=== PATIENT | female | born 1955 | race Two or more races ===

== ENCOUNTER 2019-04-27 23:33 | Inpatient (IN) | payer OTHER, MEDICAID ==
[~2019-04-27] VITALS: Ht 167.6 cm; Wt 98.0 kg
--- NOTE | 2019-04-28 01:08 | NUR ---
PT RESTING IN BED, AAOX4 WITH C/O REDNESS WITH SWELLING TO RT LOWER ABD X 1 WEEK. PT DENIES ANY TRAUMA/INJURY AT THIS TIME. PT DENIES FEVERS/CHILLS, N/V/D/C, RESP ILLNESS OR URINARY PROBLEMS AT THIS TIME. PT NOTED WITH REDNESS TO RT LOWER ABD WITH SWELLING, FIRM/WARM TO TOUCH. AT BEDSIDE.
[2019-04-28 01:31] LABS: BASOPHIL % 0.1 % (0-2); PLATELET COUNT 349 x10^3mcL (130-400)
--- NOTE | 2019-04-28 01:45 | NUR ---
RECEIVED REPORT FROM FREDY RYAN RN, I WILL BE ASSUMIGN FURTHER CARE OF THIS PATIENT.
[2019-04-28 01:51] LABS: UA SPECIFIC GRAVITY <=1.005 (1.005-1.035); microscopic required? YES; urine erythrocyte 1+ (NEGATIVE)
--- NOTE | 2019-04-28 01:55 | NUR ---
PT TAKEN AND RETURNED FROM CT WITHOUT INCIDENT VIA WHEELCHAIR.
--- NOTE | 2019-04-28 02:00 | NUR ---
PT IS AAOX4, NO DISTRESS NOTED, RESP E/U REDNESS NOTED TO RLQ. PT C/O RLQ PAIN AND SWELLING. SKIN IS HOT TO TOUCH. PT LITHUANIAN SPEAKING ONLY. AT THE BEDSIDE. PT ON FULL CM, NSR, VSS WILL CONT TO MONITOR.
[2019-04-28 02:40] LABS: CARBON DIOXIDE 22.7 mmol/L (21-32); CHLORIDE SERUM 100 mmol/L (98-107); GLUCOSE SERUM 212 mg/dL (74-106); POTASSIUM SERUM 3.8 mmol/L (3.5-5.1); SODIUM SERUM 137 mmol/L (136-145)
[2019-04-28 02:41] LABS: ALBUMIN 2.6 g/dL (3.4-5.0); ALT/SGPT 34 U/L (14-59); AST/SGOT 32 U/L (15-37); BILIRUBIN TOTAL 0.96 mg/dL (0.20-1.00); CALCIUM 8.9 mg/dL (8.5-10.1); CREATININE SERUM 0.8 mg/dL (0.6-1.0); GFR1 > 60 mL/min; TOTAL PROTEIN, SERUM 7.3 g/dL (6.4-8.2)
[2019-04-28 02:42] LABS: ALKALINE PHOSPHATASE 134 U/L (46-116)
[2019-04-28 02:57] LABS: C REACTIVE PROTEIN 22.1 mg/dL (<=0.9)
--- NOTE | 2019-04-28 02:58 | NUR ---
IV FLUIDS AND IV ZOSYN INFUSING, NO INFILTRATION OR PAIN NOTED TO SITE, PT IS AAOX4, NO DISTRESS NOTED, RESP E/U, REDNESS NOTED TO LRQ. PT ON MONTIOR, VSS. WILL CONT TO MONITOR. AT THE BEDSIDE.
--- NOTE | 2019-04-28 04:00 | NUR ---
PT IN POSITION OF COMFORT IN HIGH RUIZ'S. GAVE PATIENT A BLANKET FOR COMFORT MEASURES, PLACED SOCKS ONTO PATIENTS FEET. PT IN NO DISTRESS, RESP E/U. PT ON MONITOR, VSS, WILL CONT TO MONITOR. PT RESTING WITH EYES CLOSED, AROUSABLE TO VOICE.
[2019-04-28] MEDS ORDERED: ADVIL200 M1 PO (04:49)
[2019-04-28 05:33] LABS: CHOLESTEROL/HDL RATIO 4.3; MAGNESIUM 2.2 mg/dL (1.8-2.4)
--- NOTE | 2019-04-28 05:37 | NUR ---
REPORT GIVEN TO DEEDEE ZHAO, ON MEDSUR FLOOR WHO WILL ASSUME FURTHER CARE OF THIS PATIENT.
[2019-04-28 06:35] LABS: AMPHETAMINE QUAL UR NEGATIVE (See below)
--- NOTE | 2019-04-28 06:37 | NUR ---
RECEIVED PT FROM ER ADMITTED FOR ABDL WALL CELLULITIS, FACILITATED TO BED ORIENTED TO ROOM SET UP, PT AAO X4 VERBAL AMBULATORY, NO DISTRESS, ABD DISTENDED FIRM AND WARM TO TOUCH @ RT LOWER QUADRANT, WITH REDNESS AND SWELLING, V/S TAKEN, AFEBRILE TEMP 99.1, BP 122/62, MAP (83), HR 97, 02 SAT 97% RA, RR 18, WITH ABDL PAIN 5/10, WILL ENDORSE TO INCOMING SHIFT FOR ADMISSION.
--- NOTE | 2019-04-28 06:58 | NUR ---
IVF NS STARTED @ 100CC/HR IV ACCESS @ [facility] PATENT NON INFIL, MEDICATED WITH NORCO 1 TAB PO FOR C/O ABDL PAIN.
--- NOTE | 2019-04-28 07:19 | NUR ---
ASSUMED CARE OF PATIENT. PATIENT APPEARS LETHARGIC THIS MORNING, RESPONDING APPROPRIATELY TO QUESTIONS. COMPLAINTS OF 5/10 PAIN, NO APPARENT DISTRESS NOTED, MEDICATED BY ACADEMIC COORDINATOR PER EMAR. LLQ APPEARS ERYTHEMATOUS, HARD, AND HOT. ULCERATION NOTED TO AREA ABOVE UMBILICUS. IV TO LAC PATENT AND INFUSING NS AT 100ML/HR. WILL CONTINUE TO MONITOR.
[2019-04-28 07:36] VITALS: BP 122/62
[2019-04-28 08:14] VITALS: BP 116/66
--- NOTE | 2019-04-28 08:28 | NUR ---
DUNCAN TYLENOL PROVIDED FOR TEMP OF 101.
--- NOTE | 2019-04-28 09:36 | NUR ---
S/P TYLENOL, TEMP 100F. PRN MORPHINE PROVIDED FOR 8/10 RLQ PAIN.
--- NOTE | 2019-04-28 09:54 | NUR ---
PAGED FOR MISSING DIET ORDER.
--- NOTE | 2019-04-28 10:22 | NUR ---
DR. POPE PAGED AND RETURN CALL. MADE AWARE THAT PT HAD A TEMP THIS AM 101.8 WITH WBC 14.5 AT MIDNIGHT NO REPEAT LABS THIS AM. BLOOD CX WERE TAKEN LAST NIGHT. PT HAS UA WITH +1 LEUKS. WAS GIVEN ZOSYN AND VANCO IN ED WITH NO ATB ON BOARD AT THIS TIME. RECEIVED ORDER FOR CEFTRIAXONE 1G IVPB DAILY, AND TYLENOL IF NOT GIVEN FOR FEVER. MADE AWARE THAT FEVER HAD BEEN TREATED. NO FURTHER ORDERS WILL CONT TO MONITOR. ATTENDING NURSE MADE AWARE.
--- NOTE | 2019-04-28 12:46 | NUR ---
PATIENT RESTING IN BED WITH COMPLAINTS OF MILD 4/10 ABDOMINAL PAIN. ABLE TO AMBULATE INDEPENDENTLY TO RESTROOM. NO NEW ISSUES.
--- NOTE | 2019-04-28 13:42 | NUR ---
COMPLAINING OF 8/10 RLQ PAIN. PRN MORPHINE PROVIDED.
--- NOTE | 2019-04-28 14:10 | NUR ---
PATIENT STATING PAIN IS STILL AT 8/10. BP CHECK 126/44, PRN TYLENOL PROVIDED.
--- NOTE | 2019-04-28 16:25 | NUR ---
PATIENT IN ROOM WITH COMPLAINTS OF MILD 4/10 PAIN THAT IS TOLERABLE AND ACCEPTABLE. FAMILY ALSO AT BEDSIDE. UPDATED ON PLAN OF CARE. NO NEW ISSUES.
[2019-04-28 16:55] VITALS: BP 139/58
--- NOTE | 2019-04-28 18:38 | NUR ---
COMPLAINING OF 6/10 ABDOMINAL PAIN. PRN MORPHINE PROVIDED.
--- NOTE | 2019-04-28 18:41 | NUR ---
PATIENT MEDICATIED FOR PAIN PER EMAR. NO APPARENT DISTRESS NOTED. WILL ENDORSE CARE TO CISCO ZHAO.
--- NOTE | 2019-04-28 19:30 | NUR ---
REC'D PT FROM DAY NURSE. PT RESTING IN BED. AAOX4, SPEECH CLEAR, FOLLOWS COMMANDS. MED SURG, NO TELE. DENIES CP, DIZZINESS, OR PALPITATIONS. DENIES RESP DISTRESS OR SOB. BREATHING EVEN/UNLABORED ON RA. ABD SOFT/ROUND. RLQ INDURATED, ERYTHEMIC, AND WARM TO TOUCH. SMALL AREA OF OPEN SKIN WITH WHITE WOUND BED IN CLEFT OF ABD WITH MINIMAL DRY SANGUINEOUS DRAINAGE IRON GUARDRAIL INSTALLER. VOIDING FREELY. GEN WEAKNESS. AMBULATORY. IV TO LAC PATENT AND INFUSING, SITE WNL. CALL LIGHT WITHIN REACH, BED AT LOWEST POSITION. WILL CONTINUE TO MONITOR.
[2019-04-28 20:28] VITALS: BP 136/41
--- NOTE | 2019-04-28 20:36 | NUR ---
TEMP 103.0. PT DENIES ANY CHILLS. COOLING MEASURES INITIATED AND TYLENOL GIVEN. WILL MONITOR FOR RELIEF.
--- NOTE | 2019-04-28 22:01 | NUR ---
TEMP STILL ELEVATED S/P TYLENOL ADMINISTRATION. TEMP 102.1. COOLING MEASURES IN PLACE. DRS. CASTRO AND WALDO MADE AWARE. RECOMMENDED IBUPROFEN OR TORADOL. STATED WILL "ORDER SOMETHING."
--- NOTE | 2019-04-29 01:27 | NUR ---
PT RESTING IN BED WITH EYES CLOSED. NO SIGNS OF DISTRESS OR PAIN NOTED. BREATHING EVEN/UNLABORED ON RA. CALL LIGHT WITHIN REACH, BED AT LOWEST POSITION. WILL CONTINUE TO MONITOR.
[2019-04-29 05:09] VITALS: BP 112/58
--- NOTE | 2019-04-29 06:09 | NUR ---
PT AWAKE AND RESTING IN BED. C/O ABD PAIN 01/08. TORADOL GIVEN PER ORDER. TEMP 99.1, COOLING MEASURES IN PLACE. PT KEPT NPO D/T PENDING SURGICAL CONSULT. PT VERBALIZED UNDERSTANDING. NO SIGNIFICANT CHANGES DURING SHIFT. CALL LIGHT WITHIN REACH, BED AT LOWEST POSITION. WILL ENDORSE TO DAY NURSE.
[2019-04-29 06:58] LABS: PLATELET COUNT 363 x10^3mcL (130-400); RED CELL DISTRIBUTION WIDTH 13.8 % (11.5-14.5)
--- NOTE | 2019-04-29 07:10 | NUR ---
RECEIVED REPORT FROM ENRIKE RN AT BEDSIDE, PT IN BED IN NO ACUTE DISTRESS
[2019-04-29 07:17] LABS: CALCIUM 7.3 mg/dL (8.5-10.1); CARBON DIOXIDE 22.5 mmol/L (21-32); CHLORIDE SERUM 103 mmol/L (98-107); CREATININE SERUM 0.9 mg/dL (0.6-1.0); GFR1 > 60 mL/min; GLUCOSE SERUM 122 mg/dL (74-106); MAGNESIUM 1.7 mg/dL (1.8-2.4); POTASSIUM SERUM 3.8 mmol/L (3.5-5.1); SODIUM SERUM 138 mmol/L (136-145)
--- NOTE | 2019-04-29 07:21 | NUR ---
PT RESTING IN BED, AXOX4, DENIED HERNANDEZ/PAIN/PALPITATION, DENIED N/V/D, VERBAL, VIETNAMESE, ABLE TO MAKE NEEDS KNOWN, PERRLA, CALM AND COOPERATIVE, NO FACIAL DROOP/SLURRED SPEECH, RESP EVEN, NO SOB/COUGH, LUNG CTA, CHEST RISE SYMMETRICALLY, MEDSURG, ABD ROUND AND MILD TENDER TO TOUCH, BS ACTIVE X 4, PALP PULSES, CAP REFILL < 3S, TRACE EDEMA +1 BLE, SKIN C/D/W, SEE SKIN ASSESSMENT, IV PATENT AND INFUSING WELL, DRESSING CDI, SCDs, AMBULATORY, CONTINENT, ALL NEEDS ADDRESSED AT THIS TIME, SAFETY PROTOCOL FOLLOWED, CONTINUE TO MONITOR
[2019-04-29 07:56] VITALS: BP 95/42
--- NOTE | 2019-04-29 10:00 | NUR ---
AM MED GIVEN PER EMAR PER MD ORDER, TOLERATED WELL, NO ASE NOTED AT THIS TIME, EDUCATION R/T MED, S/E GIVEN TO PT, MARANDA UNDERSTANDING, CONTINUE TO MONITOR
--- NOTE | 2019-04-29 10:23 | NUR ---
IV LEAKING TO LAC, IV REMOVED, IV CATH TIP INTACT, NO ACTIVE BLEEDING NOTED, NEW IV STARTED TO LFA, 24G, PATENT AND FLUSHING WELL, DRESSING CDI, ALL NEEDS ADDRESSED AT THIS TIME, CONTINUE TO MONITOR
[2019-04-29 10:57] LABS: BAND NEUTROPHIL 18 % (0-10); BASOPHIL 0 % (0-2); MONOCYTE 8 % (0-7); SEGMENTED NEUTROPHILS 63 % (37-75)
[2019-04-29 10:58] LABS: PLATELET MORPHOLOGY PLATELETS INCREASED
[2019-04-29 10:59] LABS: rbc morphology (normal/abnorm) ABNORMAL (NORMAL)
--- NOTE | 2019-04-29 11:54 | NUR ---
PT REPORTED HERNANDEZ, 3/, DULL, MEDICATED PER MD ORDER VIA EMAR, TAKEN WELL, NO ASE NOTED AT THIS TIME, PT IN BED IN NO ACUTE DISTRESS, CONTINUE TO MONITOR
--- NOTE | 2019-04-29 14:26 | NUR ---
FAMILY MEMBER AT BEDSIDE, PT SLEEPING IN BED IN NO APPARENT DISTRESS, CONTINUE TO MONITOR
[2019-04-29 16:21] VITALS: BP 116/61
--- NOTE | 2019-04-29 17:13 | NUR ---
PT IN BED, IN NO ACUTE DISTRESS, DENIED CP/PAIN/PALPITATION, DENIED N/V/D, NO FACIAL DROOP/SLURRED SPEECH, RESP EVEN, NO SOB/COUGH, IV PATENT AND INFUSING WELL, DRESSING CDI, ALL NEEDS ADDRESED AT THIS TIME, SAFETY PROTOCOL FOLLOWED, WILL ENDORSE TO ONCOMING RN
--- NOTE | 2019-04-29 19:30 | NUR ---
PT RECIEVED FROM DAY NURSE. PT RESTING IN BED AT THIS TIME. DENIES PAIN OR DISCOMFORT. A/OX4, CALM AND COOPERATIVE. PT MS, DENIES CP, NV, DIZZINESS, OR PALPATATIONS. PALPABLE PULSES, TRACE EDEMA NOTED BLE. BREATHING E/U ON RA. DENIES SOB. ABD SOFT AND ROUND, HERNIA NOTED L ABD FIRM. DENIES PAIN TO PALPATION. GENERALIZED WEAKNESS, AMBULATORY AT BASELINE. IV TO LFA INTACT AND INFUSING. BED AT LOWEST POSITION. CALL LIGHT WITHIN REACH. WILL CONTINUE TO MONITOR.
[2019-04-29 20:08] VITALS: BP 116/55
--- NOTE | 2019-04-30 | NUR ---
PT RESTING IN BED AT THIS TIME. NO S/S OF PAIN OR DISCOMFORT. BREATHING E/U ON RA. NO SIGNS OF ACUTE DISTRESS NOTED AT THIS TIME. BED AT LOWEST POSITION. CALL LIGHT WITHIN REACH. WILL CONTINUE TO MONITOR.
[2019-04-30 05:10] VITALS: BP 114/52
--- NOTE | 2019-04-30 05:50 | NUR ---
PT COMPLAINING OF PAIN AT THIS TIME. 01/08 ABD PAIN. MEDICATED WITH PRN TORADOL. WILL CONTINUE TO MONITOR.
--- NOTE | 2019-04-30 06:46 | NUR ---
PT RESTING IN BED AT THIS TIME. NO S/S OF PAIN OR DISCOMFORT AT THIS TIME. VSS, NO SIGNS OF ACUTE DISTRESS NOTED. ALL NEEDS AND CONCERNS ADDRESSED THIS SHIFT. BED AT LOWEST POSITION. CALL LIGHT WITHIN REACH. WILL ENDORSE TO DAY NURSE.
--- NOTE | 2019-04-30 07:30 | NUR ---
RECEIVED PATIENT IN BED, ALERT ORIENTED MONGOLIAN SPEAKING. IVF INFUSING WELLL TO LEFT HAND, SITE PATENT. RESP EVEN AND UNLABORED, LUNGS CLEAR ON ROOM AIR. 1+ EDEMA NOTED BLE. ABD RT LOWER QUAD NOTED TO BE PINK WARM TO TOUCH AND SWOLLEN. BOWEL SOUNDS ACTIVE, LBM WAS YESTERDAY PER PATIENT. DENIES ANY PAIN OR DISCOMFORT AT THIS TIME. WILL CONTINUE TO MONITOR.
[2019-04-30 07:49] VITALS: BP 95/54
[2019-04-30 09:37] LABS: PLATELET COUNT 336 x10^3mcL (130-400); RED CELL DISTRIBUTION WIDTH 13.8 % (11.5-14.5)
[2019-04-30 10:38] LABS: BAND NEUTROPHIL 26 % (0-10); BASOPHIL 0 % (0-2); METAMYELOCTE 1 % (0-2); MONOCYTE 3 % (0-7); PLATELET MORPHOLOGY LARGE PLATELET SEEN; SEGMENTED NEUTROPHILS 65 % (37-75); rbc morphology (normal/abnorm) NORMAL (NORMAL)
[2019-04-30 10:59] LABS: CALCIUM 7.4 mg/dL (8.5-10.1); CARBON DIOXIDE 21.8 mmol/L (21-32); CHLORIDE SERUM 105 mmol/L (98-107); CREATININE SERUM 0.8 mg/dL (0.6-1.0); GFR1 > 60 mL/min; GLUCOSE SERUM 194 mg/dL (74-106); MAGNESIUM 1.7 mg/dL (1.8-2.4); PHOSPHOROUS 2.9 mg/dL (2.5-4.9); POTASSIUM SERUM 3.3 mmol/L (3.5-5.1); SODIUM SERUM 138 mmol/L (136-145)
--- NOTE | 2019-04-30 12:32 | NUR ---
PATIENT SITTING UP ON THE SIDE OF THE BED. C/O HAVING A H/A 5/10 ON THE PAIN SCALE. MEDICATD WITH TYLENOL PO ORDERED. WILL MONITOR FOR EFFECT.
--- NOTE | 2019-04-30 13:22 | NUR ---
PATIENT SITTING UP ON THE SIDE OF THE BED. PER PATIENT HER H/A HAS DECREASED BUT C/O HAVBING RT LOWER ABD PAIN 8/10 ON THE PAIN SCALE. MEDICATED WITH NORCO PO AT THIS TIME. WILL MONITOR FOR EFFECT.
--- NOTE | 2019-04-30 13:50 | NUR ---
PATIENT'S K+ LEVEL IS 3.3 TODAY. CALL PLACED TO DR GONSALVES TO NOTIFY HIM.
--- NOTE | 2019-04-30 15:38 | NUR ---
PATIENT IS SITTING UP ON THE SIDE OF THE BED TALKING ON PHONE. PER PATIENT HER RT LOWR ABD PAIN HAS DECREASED TO ABOUT A 3/10 ON THE PAIN SCALE. WILL CONTINUE TO MONITOR.
[2019-04-30 16:26] VITALS: BP 105/60
--- NOTE | 2019-04-30 17:09 | NUR ---
URINE SPECIMEN COLLECTED AND SENT TO THE LAB FOR URINE CX ORDERED.
--- NOTE | 2019-04-30 17:54 | NUR ---
PATIENT SITTING UP ON THE SIDE OF THE BED EATING DINNER TRAY. DAUGHTER AT BEDSIDE. NO ACUTE DISTRESS NOTED. WILL CONTINUE TO MONITOR.
--- NOTE | 2019-04-30 19:59 | NUR ---
REC'D PT FROM DAY NURSE. AT BEDSIDE. PT RESTING IN BED. AAOX4, SPEECH CLEAR, FOLLOWS COMMANDS. MED SURG, NO TELE. DENIES CP, DIZZINESS, OR PALPITATIONS. DENIES RESP DISTRESS OR SOB. TRACE EDEMA BLE. ABD SOFT/ROUND. RLQ INDURATED AND WARM WITH SLIGHT PITTING EDEMA. DENIES ABD PAIN OR TENDERNESS AT THIS TIME. VOIDING FREELY. AMBULATORY. IV TO LH PATENT AND INFUSING, SITE WNL. CALL LIGHT WITHIN REACH, BED AT LOWEST POSITION. WILL CONTINUE TO MONITOR.
[2019-04-30 20:25] VITALS: BP 131/60
--- NOTE | 2019-05-01 00:22 | NUR ---
PT RESTING IN BED WITH EYES CLOSED. NO SIGNS OF DISTRESS NOTED. BREATHING EVEN/UNLABORED ON RA. CALL LIGHT WITHIN REACH, BED AT LOWEST POSITION. WILL CONTINUE TO MONITOR.
--- NOTE | 2019-05-01 02:09 | NUR ---
PT C/O RLQ PAIN 01/08. NORCO GIVEN PER ORDER. WILL MONITOR FOR RELIEF.
[2019-05-01 05:26] VITALS: BP 131/55
--- NOTE | 2019-05-01 05:41 | NUR ---
PT AWAKE AND RESTING IN BED. REPORTS MINIMAL PAIN TO ABD. TOLERABLE AND DENIED PAIN MEDICATIONS. RLQ REMAINS WARM, EDEMATOUS, ERYTHEMIC AND INDURATED. NO SIGNIFICANT CHANGES DURING SHIFT. CALL LIGHT WITHIN REACH, BED AT LOWEST POSITION. WILL ENDORSE TO DAY NURSE.
--- NOTE | 2019-05-01 06:05 | NUR ---
PT SITTING UP AT THE SIDE OF THE BED AND C/O 6/10 ABD PAIN. NORCO GIVEN PER ORDER.
[2019-05-01 06:31] LABS: PLATELET COUNT 367 x10^3mcL (130-400); RED CELL DISTRIBUTION WIDTH 13.6 % (11.5-14.5)
[2019-05-01 06:51] LABS: CALCIUM 7.8 mg/dL (8.5-10.1); CARBON DIOXIDE 24.6 mmol/L (21-32); CHLORIDE SERUM 104 mmol/L (98-107); CREATININE SERUM 0.9 mg/dL (0.6-1.0); GFR1 > 60 mL/min; GLUCOSE SERUM 117 mg/dL (74-106); MAGNESIUM 1.8 mg/dL (1.8-2.4); PHOSPHOROUS 2.8 mg/dL (2.5-4.9); POTASSIUM SERUM 4.5 mmol/L (3.5-5.1); SODIUM SERUM 135 mmol/L (136-145)
--- NOTE | 2019-05-01 07:07 | NUR ---
RECEIVED PT FROM SPA CONCIERGE NURSE. PT RESTING IN BED, AOX4, RESP E/U ON RA. DENIES ABD PAIN OR N/V AT THIS TIME, NO ACUTE DISTRESS NOTED. IV TO L HAND W/ NO SIGNS OF INFILTRATION, IVF INFUSING WELL. BED IN LOWEST POSITION AND CALL LIGHT WITHIN REACH. WILL CONTINUE TO MONITOR.
[2019-05-01 08:00] VITALS: BP 109/62
[2019-05-01 08:04] LABS: BAND NEUTROPHIL 3 % (0-10); SEGMENTED NEUTROPHILS 94 % (37-75)
[2019-05-01 08:05] LABS: PLATELET MORPHOLOGY PLATELETS NORMAL; rbc morphology (normal/abnorm) ABNORMAL (NORMAL)
[2019-05-01 11:54] VITALS: BP 117/60
--- NOTE | 2019-05-01 12:05 | NUR ---
PT SITTING UPRIGHT IN BED, AOX4, RESP E/U ON RA. C/O ABD PAIN 01/08, MEDICATED ORDERED PER EMAR, DENIES N/V, COMFORT MEASURES IMPLEMENTED. BED IN LOWEST POSITION AND CALL LIGHT WITHIN REACH. WILL CONTINUE TO MONITOR.
[2019-05-01 16:14] VITALS: BP 143/73
--- NOTE | 2019-05-01 18:26 | NUR ---
PT SITTING UPRIGHT IN BED, A0X4, RESP E/U ON RA. DENIES ABD PAIN OR N/V AT THIS TIME, NO ACUTE DISTRESS NOTED. IV TO LH W/ NO SIGNS OF INFILTRATION, IVF INFUSING WELL. BED IN LOWEST POSITION AND CALL LIGHT WITHIN REACH. WILL ENDORSE TO ONCOMING NURSE.
--- NOTE | 2019-05-01 19:10 | NUR ---
RECEIVED PT FROM PREVIOUS SHIFT NURSE. PT AOX4, DENIES HERNANDEZ/DIZZINESS. MED SURG PT, DENIES CP/PRESSURE. TRACE BLE EDEMA NOTED. DENIES SOB/DIFFICULTY BREATHING, ON RA. RLQ REDNESS NOTED. IV TO L. HAND, INTACT AND PATENT. BED IN LOWEST POSITON. CALL LIGHT WITHIN REACH. WILL CONTINUE TO MONITOR.
[2019-05-01 20:40] VITALS: BP 126/69
--- NOTE | 2019-05-02 02:00 | NUR ---
PT RESTING IN BED. RR EVEN AND UNLABORED. IN NO ACUTE DISTRESS. CALL LIGHT WITHIN REACH. BED IN LOWEST POSITION. WILL CONTINUE TO MONITOR.
[2019-05-02 05:50] VITALS: BP 119/55
[2019-05-02 06:32] LABS: CALCIUM 7.7 mg/dL (8.5-10.1); CARBON DIOXIDE 23.5 mmol/L (21-32); CHLORIDE SERUM 100 mmol/L (98-107); CREATININE SERUM 0.8 mg/dL (0.6-1.0); GFR1 > 60 mL/min; GLUCOSE SERUM 129 mg/dL (74-106); POTASSIUM SERUM 4.1 mmol/L (3.5-5.1); SODIUM SERUM 132 mmol/L (136-145)
[2019-05-02 07:31] LABS: PLATELET COUNT 406 x10^3mcL (130-400)
[2019-05-02 09:11] LABS: MONOCYTE 2 % (0-7); SEGMENTED NEUTROPHILS 98 % (37-75)
[2019-05-02 09:14] VITALS: BP 145/69
[2019-05-02 09:20] LABS: rbc morphology (normal/abnorm) NORMAL (NORMAL)
[2019-05-02 17:37] VITALS: BP 119/63
--- NOTE | 2019-05-02 19:20 | NUR ---
REPORT GIVEN TO AIRCRAFT INSTRUMENT TESTER NURSE AT THE BEDSIDE, PATIENT AWAKE AND ALERT DURING REPORT, DENIED QUESTIONS OR CONCERNS AT THIS TIME, CARE ENDORSED.
--- NOTE | 2019-05-02 19:27 | NUR ---
PT. AWAKE, ALERT, ORIENTED X4. DENIES HEADACHE OR DIZZINESS. SPEECH CLEAR, CONVERSATION APPROPRIATE. ABLE TO FOLLOW COMMANDS. BREATH SOUNDS CLEAR THROUGHOUT LUNG FELTON, RESP. EVEN, UNLABORED. NO SOB NOTED. PT. ON RA. TRACE EDEMA TO BLE. PEDAL PULSES MODERATE. ABD. SOFT AND ROUND, OBESE. BOWEL SOUNDS ACTIVE. DENIES ABD. PAIN AT THIS TIME. SOME REDNESS, ERYTHEMA NOTED TO RLQ OF ABD. NO DRAINAGE NOTED. IVF NS INFUSING WELL, SITE INTACT. AT BEDSIDE. CALL LIGHT WITHIN REACH.
--- NOTE | 2019-05-02 21:37 | NUR ---
DR. KIRKLAND CALLED FOR UPDATE ON PATIENT. NO NEW ORDERS RECEIVED. PER DOCTOR SHE WILL SEE HER TOMORROW DURING ROUNDS.
[2019-05-02 21:47] VITALS: BP 123/45
--- NOTE | 2019-05-03 03:49 | NUR ---
PT. AWAKE,SITTING UP AT BEDSIDE. PT. AMBULATED TO BATHROOM AND BACK TO BED. C/O ABD. PAIN, 4-5/10 PER PT. PRN TORADOL GIVEN ORDERED. WILL MONITOR.
[2019-05-03 05:21] VITALS: BP 110/52
[2019-05-03 06:27] LABS: CALCIUM 7.7 mg/dL (8.5-10.1); CARBON DIOXIDE 26.1 mmol/L (21-32); CHLORIDE SERUM 100 mmol/L (98-107); CREATININE SERUM 0.7 mg/dL (0.6-1.0); GFR1 > 60 mL/min; GLUCOSE SERUM 116 mg/dL (74-106); POTASSIUM SERUM 3.9 mmol/L (3.5-5.1); SODIUM SERUM 134 mmol/L (136-145)
[2019-05-03 06:31] LABS: RED CELL DISTRIBUTION WIDTH 13.5 % (11.5-14.5)
[2019-05-03 06:47] LABS: BASOPHIL % 0 % (0-2); PLATELET COUNT 432 x10^3mcL (130-400)
--- NOTE | 2019-05-03 06:51 | NUR ---
PT. RESTING QUIETLY IN BED. DOZING INTERMITTENTLY. IVF INFUSING WELL, SITE REMAINS INTACT. CALL LIGHT WITHIN REACH. WILL ENDORSE PT. CARE TO INCOMING NURSE.
--- NOTE | 2019-05-03 07:10 | NUR ---
REPORT RCD FROM PAVEL PATEL. PATIENT ASLEEP, REGULAR RESPS. NS 80 ML/HR TO LEFT HAND WITHOUT COMPLICATIONS. BED LOW, CALL LIGHT WITHIN REACH. WILL MONITOR.
--- NOTE | 2019-05-03 08:10 | NUR ---
SHIFT ASSESSMENT PERFORMED AND DOCUMENTED. PATIENT SITTING UP ON SIDE OF BED, EATING BREAKFAST. REPORTS 6/10 PAIN TO ABDOMEN WHICH IS VERY FIRM ON RIGHT SIDE WITH REDNESS AND WARMTH. DENIES COLTEN/VTG/JENNIFER. LAST BM YESTERDAY. DENIES COMPLAINTS. BILATERAL PITTING EDEMA 1-2+. MEDICATED FOR PAIN WITH TYLENOL PO PER SEP, WILL MONITOR. NO OTHER NEEDS AT THIS TIME.
[2019-05-03 08:34] VITALS: BP 132/69
--- NOTE | 2019-05-03 09:17 | NUR ---
PATIENT REPORTS PAIN IMPROVED TO 4/10, AMBULATING IN HALLWAY, STEADY GAIT. NO NEEDS AT THIS TIME.
--- NOTE | 2019-05-03 10:55 | NUR ---
PATIENT ASLEEP, REGULAR RESPS, BED LOW, CALL LIGHT WITHIN REACH. WILL MONITOR.
--- NOTE | 2019-05-03 13:29 | NUR ---
IV TO LEFT HAND FOUND LEAKING AND LEFT HAND WITH SOME SWELLING, REMOVED IV. PLACED NEW IV 24 GAUTE TO RIGHT HAND.
--- NOTE | 2019-05-03 14:00 | NUR ---
PATIENT SITTING UP ON SIDE OF BED. ASSISTED WITH GOWN CHANGE, FRESH LINENS, BED BATH WITH WIPES, FRESH SOCKS.
--- NOTE | 2019-05-03 15:41 | NUR ---
PATIENT AMBULATING IN HALLWAYS, NO DISTRESS NOTED.
[2019-05-03 17:20] VITALS: BP 124/67
--- NOTE | 2019-05-03 19:10 | NUR ---
REPORT GIVEN TO PAVEL PATEL. NS 80 ML/HR INFUSING TO RIGHT HAND WITHOUT COMPLICATIONS. BED LOW, CALL LIGHT WITHIN REACH. PATIENT ASLEEP, REGULAR RESPS. CARE ENDORSED.
--- NOTE | 2019-05-03 19:26 | NUR ---
PT. MOSTLY SLEEPING, EASY TO WAKE.PT. ORIENTED X4. DENIES HEADACHE OR DIZZINESS. BREATH SOUNDS CLEAR THROUGHOUT LUNG FELTON, RESP. EVEN, UNLABORED. NO SOB NOTED. PT. ON RA. ABD FIRM, ROUND, OBESE. MORE RIGID IN RLQ. TENDER TO TOUCH. REDNESS DECREASING, BUT STILL VERY FIRM. DENIES NAUSEA. BOWEL SOUNDS ACTIVE. +1 EDEMA TO BLE. PEDAL PULSES MODERATE. IVF INFUSING WELL, SITE INTACT. CALL LIGHT WITHIN REACH.
[2019-05-03 20:55] VITALS: BP 112/53
--- NOTE | 2019-05-04 02:30 | NUR ---
PT. SLEEPING AT THIS TIME. RECEIVED PRN PAIN MEDICATION EARLIER. IVF INFUSING WELL, SITE REMAINS INTACT. CALL LIGHT WITHIN REACH.
[2019-05-04 05:17] VITALS: BP 116/66
--- NOTE | 2019-05-04 07:30 | NUR ---
RECEIVED PATIENT IN BED, AWAKE, ALERT MACANESE SPEAKING. IVF INFUSING WELL TO RIGHT HAND, RESP EVEN AND UNLABORED, LUNGS CLEAR ON ROOM AIR. ABD ROUND AND FIRM ESPECIALLY ON RIGHT SIDE. RED AND WARM TO TOUCH. PER PATIENT HER ABD IS TENDER TO TOUCH. VOIDING WELL. AMBULATES TO THE BATHROOM WITH SLOW STEADY GAIT. 2+ EDEMA NOTED BLE.
[2019-05-04 07:57] LABS: CALCIUM 7.6 mg/dL (8.5-10.1); CARBON DIOXIDE 25.7 mmol/L (21-32); CHLORIDE SERUM 102 mmol/L (98-107); CREATININE SERUM 0.5 mg/dL (0.6-1.0); GFR1 > 60 mL/min; GLUCOSE SERUM 102 mg/dL (74-106); POTASSIUM SERUM 5.1 mmol/L (3.5-5.1); SODIUM SERUM 136 mmol/L (136-145)
[2019-05-04 08:19] LABS: RED CELL DISTRIBUTION WIDTH 14.2 % (11.5-14.5)
[2019-05-04 08:22] VITALS: BP 141/67
[2019-05-04 08:30] LABS: BASOPHIL % 0 % (0-2)
[2019-05-04 08:33] LABS: PLATELET COUNT 541 x10^3mcL (130-400)
--- NOTE | 2019-05-04 09:49 | NUR ---
PATIENT SITTING UP ON THE SIDE OF THE BED. C/O ABD PAIN 6/10 ON THE PAIN SCALE. MEDICATED WITH NORCO PO ORDERED. WILL MONITOR FOR EFFECT.
--- NOTE | 2019-05-04 10:37 | NUR ---
PATIENT IS IN BED, APPEARS TO BE RESTING. AROUSED EASILY TO VERBAL STIMULI, PER PATIENT PAIN LEVEL IS NOW 2/10 ON THE PAIN SCALE.
[2019-05-04 11:41] VITALS: BP 127/60
--- NOTE | 2019-05-04 12:34 | NUR ---
PATIENT UP OOB SIITING IN CHAIR IN ROOM. NO FURTHER C/O PAIN AT THIS TIME. AMBULATES TO THE BATHROOM PRN. IVF INFUSING WELL. WILL CONTINUE TO MONITOR.
--- NOTE | 2019-05-04 14:17 | NUR ---
PATIENT IS IN BED, C/O ABD PAIN. 5/10 ON THE PAIN SCALE. MEDICATED WITH TYLENOL PO AT THIS TIME. WILL MONITOR FOR EFFECT.
--- NOTE | 2019-05-04 15:14 | NUR ---
PATIENT UP OOB TO THE BATHROOM. PATIENT HAD A VERY LARGE WATERY STOOL EXPLOSIVE. ASSISTED PATIENT WITH CLEAN UP AND GOWN CHANGE. AMBULTED PATIENT BACK TO BED. WILL CONTINUE TO MONITOR.
--- NOTE | 2019-05-04 15:30 | NUR ---
PATIENT'S ABD APPEARS TO BE MORE RED AND FIRM, VERY WARM TO TOUCH. SENIOR ANALYTIC CONSULTANT SELVIN NOTIFIED AND ALSO NOTIFIED ABOUT THE LARGE WATERY STOOL.
[2019-05-04 16:28] VITALS: BP 124/58; BP 124/60
--- NOTE | 2019-05-04 17:00 | NUR ---
PATIENT IS DOWN FOR CT OF ABD VIA W/C AT THIS TIME.
--- NOTE | 2019-05-04 17:10 | NUR ---
PATIENT RETURNED FROM CT SCAN, AND IS BACK IN BED. DR KIRKLAND AT BEDSIDE TO SEE PATIENT. LORELEI RN AT BEDSIDE TO TRANSLATE. OSTOMY BAG APPLIED TO ABD WOUND DIRECTED BY DR KIRKLAND. PATIENT NPO. PER PATIENT HER ABD PAIN IS VERY LITTLE AT THIS TIME. IVF INFUSING WELL. WILL CONTINUE TO MONITOR.
--- NOTE | 2019-05-04 18:08 | NUR ---
PATIENT REMAINS IN BED APPEARS TO BE RESTING WELL. ONLY A SCANT AMOUNT OF DRAINAGE FROM ABD WOUND NOTED IN OSTOMY BAG AT THIS TIME. NO FURTHER C/O PAIN OR DISCOMFORT. CONTINUES TO BE NPO.
--- NOTE | 2019-05-04 18:12 | NUR ---
I HAVE REVIEWED THE DATA COLLECTION BY GABRIELLA (NAME): MARCEL BRADFORD ENTERED ON (DATE/TIME): 05/04/19 I CONCUR WITH THE DATA AND ANY EXCEPTIONS OR COMMENTS ARE LISTED BELOW:
--- NOTE | 2019-05-04 20:00 | NUR ---
RECEIVED PT IN BED, RESTING QUIETLY. A/O X4. SYRIAC SPEAKING. ABLE TO VERBALIZE NEEDS.DENIES HEADACHE/DIZZINESS. RESP. EVEN AND UNLABORED. LUNG SOUNDS CLEAR BILAT. ON ROOM AIR, NO ACUTE DISTRESS NOTED. AFEBRILE AND VITAL SIGNS STABLE. DENIES PAIN OR ANY DISCOMFORT AT THIS TIME. ABD. OBESE AND FIRM TO TOUCH.BS ACTIVE, NO N/V NOTED. RLQ REDNESS NOTED. VOIDS FREELY. IVF, NS AT 80ML/HR, INTACT AND INFUSING VIA RT HAND.SITE CLEAR. ASSISTED WITH HS CARE. CALL LIGHT WITHIN REACH. WILL CONTINUE TO MONITOR.
[2019-05-04 20:53] VITALS: BP 154/82
--- NOTE | 2019-05-04 23:00 | NUR ---
COMPLAINED OF ABD. PAIN, 5/10, REQUESTING PAIN MED, MEDICATED WITH NORCO PO ORDERED. WILL CONTINUE TO MONITOR.
--- NOTE | 2019-05-05 01:38 | NUR ---
PT RESTING QUIETLY ,WITH EYES CLOSED, APPEARS ASLEEP , EASILY AROUSABLE. RESP. EVEN AND UNLABORED. NO ACUTE DISTRESS NOTED. WILL CONTINUE TO MONITOR.
[2019-05-05 04:59] VITALS: BP 150/72
--- NOTE | 2019-05-05 06:22 | NUR ---
AFEBRILE AND VITAL SIGNS STABLE. RESP. EVEN AND UNLABORED, NO ACUTE DISTRESS NOTED. DUE MEDS GIVEN ORDERED, PAULO. WELL. ABD. REMAINS OBESE AND FIRM TO TOUCH. NOTED 350ML CLOUDY DRAINAGE FROM ABD. DRAINAGE BAG.NO COMPLAINTS OF PAIN OR ANY DISCOMFORT AT THIS TIME. IVF INTACT AND INFUSING WELL , SITE CLEAR. VOIDING FREELY. KEPT COMFORTABLE. CALL LIGHT WITHIN REACH. WILL CONTINUE TO MONITOR.
[2019-05-05 06:24] LABS: BASOPHIL % 0.4 % (0-2); RED CELL DISTRIBUTION WIDTH 13.9 % (11.5-14.5)
[2019-05-05 06:35] LABS: PLATELET COUNT 572 x10^3mcL (130-400)
[2019-05-05 06:41] LABS: CALCIUM 7.6 mg/dL (8.5-10.1); CHLORIDE SERUM 102 mmol/L (98-107); CREATININE SERUM 0.6 mg/dL (0.6-1.0); GFR1 > 60 mL/min; GLUCOSE SERUM 103 mg/dL (74-106); POTASSIUM SERUM 3.4 mmol/L (3.5-5.1); SODIUM SERUM 140 mmol/L (136-145)
--- NOTE | 2019-05-05 07:05 | NUR ---
SEEN RESTING IN BED AWAKE, ALERT, ORIENED X4. NO RESP DISTRESS NOTED. BREATHING E/U ON ROOM AIR. RIDIDITY AND ERYTHEMA TO RLQ WITH SMALL OPEN WOUND COVERED WITH COLOSTOMY BAG NOTED SMALL AMOUNT OF BROWISH IN COLOR DRAINAGE. KEPT NPO. IVF TO RT HAND NS INFUSING AT 80ML/HR. STATED ABLE TO AMBULATE TO BATHROOM. REFUSED PAIN MEDS OFFERED STATED TOLERABLE AT THIS TIME. CALL LIGHT PLACED WITHIN EASY REACH. SIDERAILS UP X2.
--- NOTE | 2019-05-05 08:35 | NUR ---
SEEN SITTING UP IN BED STATED HAVING PAIN TO RLQ ABSCESS AREA, NORCO 1 TAB PO GIVEN, WILL CONTINUE TO MONITOR.
--- NOTE | 2019-05-05 09:00 | NUR ---
STATED PAIN TO RLQ SUBSIDED. PATIENT'S FAMILY AT BEDSIDE.
[2019-05-05 09:20] VITALS: BP 141/56
--- NOTE | 2019-05-05 12:20 | NUR ---
PATIENT STATED THAT EXTERN MATTY ALREADY EXPLAINED TO HER ABOUT THE PURPOSE OF PICC LINE INSERTION THIS MORNING. CONSENT SIGNED BY PATIENT WHO IS AWAKE,ALERT, ORIENTED X4 WITHNESSED AND INTERPRETED BY PATIENT'S DAUGHTER AT BEDSIDE.
--- NOTE | 2019-05-05 16:00 | NUR ---
NOT YET RECEIVED A CALL BACK FROM PICC LINE INSERTION STAFF. CALLED PICC LINE RN PLUS FOR A 2ND TIME STATED THAT WILL CONTACT THEIR STAFF AGAIN TO CALL BACK THE NURSE STATION.
--- NOTE | 2019-05-05 16:35 | NUR ---
HAS NOT YET RECEIVED A CALL BACK FROM PICC LINE INSETION STAFF. CALLED [phone] AND LEFT A VOICEMAIL.
[2019-05-05 16:52] VITALS: BP 124/54
--- NOTE | 2019-05-05 18:00 | NUR ---
NO ANY DISTRESS THROUGHOUT SHIFT. ALL DUE SCHEDULED MEDS GIVEN. NORCO GIVEN X2 FOR RLQ PAIN WITH GOOD RELIEF. AMBULATORY TO BATHROOM WITH STEADY GAIT. KEPT NPO.
--- NOTE | 2019-05-05 18:09 | NUR ---
RECEIVED A CALL BACK FROM [facility] PICC LINE INSERTION RN STATED WILL BE HERE WITHIN 2 HOURS. LOW ALTITUDE AIR DEFENSE GUNNER MADE AWARE.
--- NOTE | 2019-05-05 19:50 | NUR ---
RECEIVED PT IN BED, A/O X4. YAKUT SPEAKING, ABLE TO VERBALIZE NEEDS. DENIES HEADACHE/DIZZINESS. RESP. EVEN AND UNLABORED. ON ROOM AIR, NO ACUTE DISTRESS NOTED. AFEBRILE AND VITAL SIGNS STABLE. ABD. OBESE AND FIRM TO TOUCH, DRAINAGE BAG TO RLQ, BROWNISH COLOR LIQ. OUTPUT NOTED. BS ACTIVE, NO N/V NOTED. IVF, NS AT 80ML/HR, INTACT AND INFUSING VIA LFA, SITE CLEAR. PENDING PICC LINE INSERTION. AMBULATES. VOIDS FREELY. CALL LIGHT WITHIN REACH. WILL CONTINUE TO MONITOR.
[2019-05-05 20:07] VITALS: BP 150/69
--- NOTE | 2019-05-05 21:28 | NUR ---
PICC LINE INSERTED TO JUDY BY PICC LINE INSERTION NURSE. STAT CHEST X-RAY DONE TO CONFIRM PLACEMENT. PT COMPLAINED OF ABD. PAIN,5/10, MEDICATED WITH NORCO PO ORDERED. KEPT COMFORTABLE. CALL LIGHT WITHIN REACH. WILL CONTINUE TO MONITOR.
--- NOTE | 2019-05-06 01:49 | NUR ---
NO COMPLAINTS NOTED AT THIS TIME. RESTING QUIETLY , WITH EYES CLOSED, EASILY AROUSABLE. RESP. EVEN AND UNLABORED, NO ACUTE DISTRESS NOTED. IVF INTACT AND INFUSING VIA JUDY PICC LINE. CALL LIGHT WITHIN REACH. WILL CONTINUE TO MONITOR.
[2019-05-06 05:26] VITALS: BP 148/72
[2019-05-06 06:32] LABS: RED CELL DISTRIBUTION WIDTH 14.1 % (11.5-14.5)
--- NOTE | 2019-05-06 06:40 | NUR ---
COMPLAINED OF ABD. PAIN, 6/10, MEDICATED WITH NORCO ORDERED. AFEBRILE AND VITAL SIGNS STABLE. RESP. EVEN AND UNLABORED. NO ACUTE DISTRESS NOTED. IVF INTACT AND INFUSING WELL. ABD. REMAINS OBESE, RED AND FIRM TO TOUCH. 150ML OF BROWNISH COLOR DRAINAGE NOTED FROM ABD. DRAINAGE BAG. KEPT COMFORTABLE. WILL ENDORSE TO INCOMING NURSE.
[2019-05-06 06:48] LABS: BASOPHIL % 0 % (0-2); PLATELET COUNT 749 x10^3mcL (130-400)
[2019-05-06 06:53] LABS: CALCIUM 7.3 mg/dL (8.5-10.1); CARBON DIOXIDE 26.3 mmol/L (21-32); CHLORIDE SERUM 104 mmol/L (98-107); CREATININE SERUM 0.5 mg/dL (0.6-1.0); GFR1 > 60 mL/min; GLUCOSE SERUM 88 mg/dL (74-106); MAGNESIUM 2.1 mg/dL (1.8-2.4); PHOSPHOROUS 2.7 mg/dL (2.5-4.9); POTASSIUM SERUM 3.6 mmol/L (3.5-5.1); SODIUM SERUM 139 mmol/L (136-145)
--- NOTE | 2019-05-06 07:20 | NUR ---
SEEN IN BED AWAKE, ALERT, ORIENTED X4. NO RESP DISTRESS NOTED, BREATHING E/U ON ROOM AIR. LUNG SOUND CTA. STATED PAIN TO RLQ WOUND IS TOLERABLE AFTER NORCO GIVEN EARLIER. PICC LINE TO JUDY WITH DRSG CDI, IVF NS AT 80 ML/HR INFUSING WELL. ENCOURAGED TO AMBULATE TOLERATED, PATIENT VERBALIZED UNDERSTANDING. CALL LIGHT PLACED WITHIN EASY REACH. SIDERAILS UP X2.
[2019-05-06 07:36] VITALS: BP 150/69
--- NOTE | 2019-05-06 15:42 | NUR ---
Initial Nutrition Assessment Dx: Abdominal wall cellulitis PMHx: None PSHx: None Labs: BUN 4L, Cr 0.5L, POC glucose levels < 180 mg/dL x 3 days Meds: Colace, D50%, Humulin, Loraine, NSIV, Zosyn Diet: NPO today TPN: D10AA4.25 60 ml/Hr on written order PO intake since admission: When on PO diet, 50-100% with good tolerance Ht: 66" Wt: 215# (97.9 kg) BMI: 34.9 (Obesity Class I/borderline Class II) Bed scale: 220# today during visit IBW: 130# %IBW: 165% AJBW: 68.8 kg UBW: unable to obtain Age: 64 y/o female Food Allergies: NKFA Skin: RLQ with drainage bag Bebeto: 21 Edema: None GI: Last BM: x 1 today, drainage bag to RLQ with liquid stool Pt. admitted with worsening abdominal pain x 1 week without acute GI distress per H and P documentations. Right side abdominal region with drainage per provider progress notes today. RD Note: No TPN running during visit. No reported GI distress today per pt and denies any recent history of weight changes prior to admission. Answers to nutrition related questions limited d/t patient sleeping. Problem with: N/V/D/C: N Problems with: Chewing: N Swallowing: N Recent wt change: None reported Vitamin/Supplement use: None Special diet at home: Regular Physical activity: None d/t acute illness Nutrition education given: No diet education provided during visit. Estimated Nutritional Needs Based on adjusted body weight (68.8 kg) Energy: 9197-0416 kcal/day (25-30 kcal/kg for maintenance factors) Protein: 69-82 g/day (1.0-1.2 g/kg for maintenance) Fluid: 7269-2264 mL/day (1 mL/kcal) Nutrition Diagnosis: 1. Inadequate TPN infusion r/t current nutrition support order AEB current running rate meeting <50% estimated needs. Intervention 1. Increase D10AA4.25 TPN infusion to 70 mL/hr to provide >50% estimated kcal and protein needs. Provides 285 kcal from protein (71.4 g) and 571 kcal from dextrose. Monitor/Evaluate Goal: TPN intake at least 50% of estimated needs Monitor: TPN intake/tolerance, Labs, GI function F/U in 2-3 days as high risk (05/08-05/09)
[2019-05-06 16:40] VITALS: BP 145/74
--- NOTE | 2019-05-06 17:36 | NUR ---
NORCO PO GIVEN ORN X2 FOR RLQ ABSCESS PAIN WITH GOOD RELIEF. OSTOMY BAG REMOVED AND CLEANSED RLQ WOUND WITH NS, NEW BAG INPLACED. STRONG FOUL ODOR/YELLWISH DRAINAGE FROM RLQ 100ML OUTPUT TOTAL TODAY. ZOSYN IV GIVEN Q 6HRS. IVF NS TO JUDY PICC LINE INFUSING WELL. PER PHARMACY TPN WILL BE READY TO START AT 21:00. PATIENT MADE AWARE PLAN OF CARE.
--- NOTE | 2019-05-06 19:15 | NUR ---
RECEIVED PT AOX4 ABLE TO RESPOND TO COMMANDS, MAKE NEEDS KNOWN. GCS=15. PUPILS BRISK RESPONSE TO LIGHT B/L, PERRLA. SPEECH CLEAR, NO FACAIL DROOP. LUNG SOUNDS CTAB, CHEST RISE/FALL SYMMETRIC, E/U BREATHING NO ACUTE DISTRESS, NO SOB ON ROOM AIR. PICC LINE TO JUDY INFUISNG NS @ 80 ML/HR, PORTS PATENT X2, DRESSING CDI. ACTIVE BOWEL SOUNDS X4 QUADRANTS, ABD ROUND. NO BM REPORTED. WOUND TO RLQ WITH BROWN DRAINAGE, OSTOMY BAG INTACT, TPN WILL BE STARTED TONIGHT PER EMAR. BED AT LOWEST SETTING, CALL LIGHT WITHIN REACH, HOB ELEVATED, ALL COMFORT NEEDS MET AND TEACHIGN PROVIDED. WILL CONT TO MONITOR.
[2019-05-06 20:28] VITALS: BP 15/75; BP 153/75
--- NOTE | 2019-05-06 20:28 | NUR ---
PT REPORTING 6/10 ABD PAIN TO WOUND SITE, PT MEDICATED WITH NORCO PER EMAR.
--- NOTE | 2019-05-06 20:29 | NUR ---
TPN INFUSION INITIATED AT THIS TIME @ 60 ML/HR VERIFIED BY 2 RN'S PER EMAR. NORMAL SALINE GTT INFUSION D/C AT THIS TIME.
--- NOTE | 2019-05-07 00:27 | NUR ---
DR. VARGAS AT [facility] FOR ASSESSMENT. UPDATES PROVIDED BY NURSING. NO NEW ORDERS AT THIS TIME.
--- NOTE | 2019-05-07 01:20 | NUR ---
PT SLEEPING BUT EASILY AROUSABLE TO VERBAL STIMULI. PT IN NO ACUTE DISTRESS, NO SOB NOTED. WILL CONT TO MONITOR
--- NOTE | 2019-05-07 01:55 | NUR ---
PT REPORTING 6/10 ABD PAIN. PT MEDICATED WITH NORCO PER EMAR.
[2019-05-07 04:40] VITALS: BP 145/76
--- NOTE | 2019-05-07 05:32 | NUR ---
PT AWAKE/ALERT AT THIS TIME, NO ACUTE DISTRESS, DENIES SOB ON ROOM AIR. JUDY PICC LINE PORTS PATENT X2, INFUSING TPN @ 60 ML/HR, INFUSING WELL. RLQ WOUND DRAINING BROWNISH DISCHARGE WITH OSTOMY BAG INTACT. BED AT LOWEST SETTING, CALL LIGHT WITHIN REACH. WILL CONT TO MONITOR.
--- NOTE | 2019-05-07 07:00 | NUR ---
PT REPORTING 7/10 ABD PAIN. PT MEDICATED WITH NORCO PER EMAR.
[2019-05-07 07:07] LABS: BASOPHIL % 0.4 % (0-2); CALCIUM 7.2 mg/dL (8.5-10.1); CARBON DIOXIDE 27.7 mmol/L (21-32); CHLORIDE SERUM 103 mmol/L (98-107); CREATININE SERUM 0.5 mg/dL (0.6-1.0); GFR1 > 60 mL/min; GLUCOSE SERUM 154 mg/dL (74-106); MAGNESIUM 2.3 mg/dL (1.8-2.4); PHOSPHOROUS 2.5 mg/dL (2.5-4.9); POTASSIUM SERUM 3.2 mmol/L (3.5-5.1); SODIUM SERUM 138 mmol/L (136-145)
--- NOTE | 2019-05-07 07:20 | NUR ---
GAVE REPORT TO PAVEL MENDEZ. UPDATES GIVEN, QUESTIONS ANSWERED, ENODRSED CARE.
--- NOTE | 2019-05-07 07:21 | NUR ---
RECEIVED PT'S REPORT FROM LEAVING NURSE. PT REST ON BED, NO COMPLAIN OF PAIN AT THIS TIME. PT BREATHING ON RA, EVEN, UNLABORED. LLQ ABD OPEN WOUND COVED BY OSTOMY BAG, PURULENT DRAINAGE NOTED IN COLOSTOMY BAG. PT IS NPO, ON TPN FEEDING AT 60ML/HR VIA PICC LINE ON JUDY. LLQ ABD INFECTED SITE BLAYNE, WARM TO TOUCH. PT IS BRP. WILL CONTINUE PT'S CARE.
[2019-05-07 07:24] LABS: RED CELL DISTRIBUTION WIDTH 14.6 % (11.5-14.5)
[2019-05-07 07:26] LABS: PLATELET COUNT 764 x10^3mcL (130-400)
[2019-05-07 08:30] VITALS: BP 138/71
--- NOTE | 2019-05-07 11:00 | NUR ---
MADE LEAN ENGINEER DESIRE AWARE PT'S CRITICAL LAB PLT 764.
--- NOTE | 2019-05-07 12:30 | NUR ---
PT'S DAUGHTER AT BEDSIDE AND AWARE ABOUT CURRENT TREATMENT PLAN. PT COMPLAIN OF PAIN ON INFECTED SITE OF ABD. NORCO GIVEN PER PRN ORDER.
[2019-05-07 16:17] VITALS: BP 148/68
--- NOTE | 2019-05-07 17:06 | NUR ---
PT COMPLAIN OF ABD LLQ PAIN, DENIED NAUSEA. NORCO GIVEN PER PRN ORDER.
--- NOTE | 2019-05-07 17:14 | NUR ---
100ML PINK AND BRWOM DRAINAGE FROM LLQ OSTOMY COLLECTED BAG.
--- NOTE | 2019-05-07 19:30 | NUR ---
RECIEVED PATIENT AT START OF SHIFT A/O X4. MED-SURG. NO SOB ON RA, LUNGS CTAB. PATIENT STATES SHE HAS NO PAIN AT THIS TIME. TRACE EDEMA NOTED TO BLE. OSTOMY BAG IN PLACE OVER RLQ ABDOMINAL WOUND, DRAINING PINK THICK EXUDATE. WOUND IS APPROXIMATELY 1.5CM BY 1.5 CM, UNKNOWN DEPTH. PICC LINE TO JUDY IS INFUSING WELL, NO ERYTHEMA AT THE SITE, DRESSING CDI. BED LOCKED AND IN LOWEST PSITION. CALL LIGHT WITHIN REACH.
--- NOTE | 2019-05-07 19:34 | NUR ---
PT REST ON BED WITH FAMILY MEMBER AT BEDSIDE. PT STATED PAIN IS WELL CONTROLLED BY NORCO. PT BREATHING ON RA, EVEN, UNLABORED. TPN IS INFUSING AT 60ML/HR VIA PICC LINE. PT'S CARE IS ENDORSED TO RECEIVING NURSE.
[2019-05-07 21:20] VITALS: BP 123/72
--- NOTE | 2019-05-07 21:38 | NUR ---
PATIENT GIVEN NORCO PER EMAR FOR 6/10 PAIN TO HER ABDOMINAL WOUND.
--- NOTE | 2019-05-07 23:21 | NUR ---
PATIENT GIVEN TYLENOL PER EMAR FOR REPORT OF 5/10 ABDOMINAL PAIN. WOUND OSTOMY WAS DRAINED, 100 MLS OF PINK PURULENT EXUDATE. SLIGHT FOUL ODOR NOTED.
--- NOTE | 2019-05-08 00:25 | NUR ---
PATIENTS EYES ARE CLOSED, BREATHS EVEN AND REGULAR, NO DISTRESS NOTED. CALL LIGHT WITHIN REACH. PICC LINE INFUSING WITHOUT COMPLICATION.
--- NOTE | 2019-05-08 03:22 | NUR ---
PATIENT GIVEN NORCO PER EMAR FOR 7/10 ABDOMINAL PAIN.
--- NOTE | 2019-05-08 06:05 | NUR ---
PATIENT IS AWAKE. NO SOB ON RA. MILD 3/10 PAIN TO RLQ ABDOMEN. TOTAL 180 MLS OUT OF WOUND THIS SHIFT, PINK PURULENT EXUDATE. PICC LINE INTACT, INFUSING WITHOUT DIFFICULTY. CALL LIGHT WITHIN REACH. WILL ENDORSE CARE TO DAYSHIFT NURSE.
[2019-05-08 06:34] LABS: CALCIUM 7.6 mg/dL (8.5-10.1); CARBON DIOXIDE 29.2 mmol/L (21-32); CHLORIDE SERUM 104 mmol/L (98-107); CREATININE SERUM 0.5 mg/dL (0.6-1.0); GFR1 > 60 mL/min; GLUCOSE SERUM 145 mg/dL (74-106); POTASSIUM SERUM 3.7 mmol/L (3.5-5.1); SODIUM SERUM 139 mmol/L (136-145)
[2019-05-08 06:37] LABS: BASOPHIL % 0.1 % (0-2)
[2019-05-08 07:38] LABS: PLATELET COUNT 860 x10^3mcL (130-400)
--- NOTE | 2019-05-08 08:00 | NUR ---
A&OX4, FOLLOWS COMANDS. URDU SPEAKING ONLY. DENIES CHEST PAIN, STRONG PALPABLE PULSES, TRACE, NONPITTING EDEMA. HEPARIN IN TPN. LUNG SOUDNS ARE CTA BILATERALLY, ON RA, O2 SAT 99%. NORMOACTIVE BOWEL SOUNDS X4. RLQ W/ OSTOMY BAG DRAINING PURULENT DRAINAGE. ABLE TO AMBULATE INDEPENDENTLY. HAS BRP. RLQ ABD OPEN WOUND W/ PURULENT DRAINAGE TO OSTOMY BAG. PICC LINE SITE DRESSING CDI. COOPERATES WELL.
[2019-05-08 17:04] VITALS: BP 145/72
--- NOTE | 2019-05-08 18:18 | NUR ---
NURSING CO-SIGN THE DOCUMENTATION ENTERED BY THE IP HAS BEEN REVIEWED. REVIEWED/CO-SIGNED BY: Lorena Lin DOCUMENTATION DONE BY: Rolanda HOUSTON
--- NOTE | 2019-05-08 18:29 | NUR ---
A&OX4. PATIENT DOES NOT APPEAR TO BE IN ANY DISRTRESS. PATIENT COOPERATES WELL. PATIENT DENIES CHEST PAIN, HAS TRACE EDEMA BILATERAL LOWER EXTREMITIES. LUNG SOUNDS ARE CTA AND IS ON RA WITH O2 SATS 98%. RIGHT LOWER ABD QUADRANT OPEN WOUND WITH OSTOMY BAG SITE IS CDI. DRAINAGE IS PURULENT. PT REMAINS ON TPN.
--- NOTE | 2019-05-08 20:51 | NUR ---
RECEIVED AWAKE SITTING AT THE FOOT[PART OF THE BED. SKIN WARM AND DRY TO TOUCH WITH 2+EDEMA ON BLE. RLQ OF THE ABDOMEN WITH RIGIDITY /ERYTHEMA DUE TO ABDOMINAL WALL CELLULITIS. DENIES ANY PAIN/DISCOMFORT AST THIS TIME. RESPIRATION EVEN AND UNLABORED. ON ROOM AIR SATURATING AT 100%. PICC LINE AT THE JUDY INTACT AND PATENT WITH TPN INFUSING AT 60ML/HR TOLERATING WELL. PLACED CALL LIGHT WITHIN REACH. INSTRUCTED TO CALL FOR [place] ASSISTANCE NEEDED AND VERBALIZED UNDERSTANDING.
[2019-05-08 21:17] VITALS: BP 135/78
--- NOTE | 2019-05-09 00:01 | NUR ---
CONTINUES ON ATB IVPB FOR MANAGEMENT OF CELLULITIS ON THE ABDOMINAL WALL. NO ADVERSE REACTION NOTED. TPN INFUSING WELL AT 60ML/HR VIA PICC LINE AT THE JUDY. TOLERATING WELL.
[2019-05-09 04:54] VITALS: BP 149/87
[2019-05-09 06:11] LABS: BASOPHIL % 0.5 % (0-2); RED CELL DISTRIBUTION WIDTH 14.4 % (11.5-14.5)
--- NOTE | 2019-05-09 06:13 | NUR ---
BLOOD SUGAR CHECK VIA FINGERSTICK. NO S/S OF GLYCEMIC REACTION. REMAIN NPO ORDERED. KEPT CLEAN AND DRY. ALL NEEDS ATTENDED.
[2019-05-09 06:41] LABS: CARBON DIOXIDE 26.5 mmol/L (21-32); CHLORIDE SERUM 105 mmol/L (98-107); CREATININE SERUM 0.5 mg/dL (0.6-1.0); GFR1 > 60 mL/min; GLUCOSE SERUM 136 mg/dL (74-106); MAGNESIUM 2.5 mg/dL (1.8-2.4); POTASSIUM SERUM 3.8 mmol/L (3.5-5.1); SODIUM SERUM 140 mmol/L (136-145)
--- NOTE | 2019-05-09 07:15 | NUR ---
RECEIVED PT FROM NIGHT NURSE. PT IS LAYING DOWN IN BED WITH HOB UP WATCHING TV. PT LOOKS TO BE IN NO ACUTE DISTRESS AT THIS TIME AND DENIES ANY PAIN. RESPRIATIONS EVEN AND UNLABORED ON ROOM AIR. WOUND TO ABD HAS COLOSTOMY BAG FOR DRAINAGE. DRAINAGE IS DARK BROWN. BED IN LOWEST POSITION, CALL LIGHT WITHIN REACH, WILL CONTINUE TO MONITOR.
[2019-05-09 07:38] LABS: PLATELET COUNT 826 x10^3mcL (130-400)
--- NOTE | 2019-05-09 08:18 | NUR ---
RECEIVED PT CRITICAL LAB RESULT FROM LAB, WAS INFORMED VIA TELEPHONE THAT PLATELET LEVEL IS 854, ON EMAR PLATELET LEVEL IS 826. CALLED LAB TO CONFIRM PLATELET LEVEL AND WAS INFORMED THAT PLATELET IS 826. PLATELET LEVEL DECREASED FROM 05/08 OF 860. WILL NOTIFY OF TRENDING DOWN LAB VALUE.
[2019-05-09 09:31] VITALS: BP 149/83
--- NOTE | 2019-05-09 12:14 | NUR ---
Follow-up Nutrition Assessment: 252/B JM ROSENBERG FU HR Dx: Abdominal wall cellulitis PMHx: none Labs: (05/09) BG 136H, BUN 4.0L, CREAT 0.5L, MG 2.5H, HGB 11.0L Meds: Colace, D 10%, D 50%, Humulin, norco, Zofran, zosyn Diet: TPN D 10%, AA 4.25% @ 60 ml/hr, 1440 ml/day PO Intake: NPO Weights: (05/06) 97.9 kg, (05/09) 108.2 kg I/Os: (05/09) 1060/250 (810) Skin: RLQ abdomen with open wound Bebeto: 20 Edema: +2 BLE GI: Last BM: 05/07 Note (05/09): Patient was sleeping. TPN (D 10%, AA 4.25%) was running @ 60 ml/hr. Discussed with ESCROW AGENT Flakito that patient has a central line but dextrose percentage is 10% and can go higher up to 25%. ESCROW AGENT said to talk with the pharmacist. I spoke with the pharmacist, he will change the dextrose to 25% Per progress note, (05/08) Patient noted to be on TPN for bowel rest, On 05/04/19 patient was noted to have a open wound on the right side of the abdomen causing it to drain. Dr. Ramirez surgeon re-evaluated orders to place ostomy bag where the drain is coming from, cultures of the drainage taken and grew klebsiella pneumoniae. As per surgeon no surgical interventions at this time as patient's hernia is large and will have a complicated surgery Estimated Nutritional Needs Based on adjusted body weight (68.8 kg) Energy:1783-0428 kcal/day (25-30 kcal/kg for maintenance) Protein: 69-82 g/day (1.0-1.2 g/kg for maintenance) Fluid:6237-0821 mL/day (1 mL/kcal) or per MD Nutrition Diagnosis: 1. Inadequate TPN infusion related to current nutrition support order as evidenced by current running rate meeting <50% estimated needs. Intervention: 1. Recommend changing dextrose from 10% to 25%. TPN D 25%, AA 4.25% @ 60 ml/hr. This will provide 360g dextrose, 1470 kcal and 61.2g protein. GIR = 2.3 mg/kg/min. Discussed recommendations with the pharmacist. Monitor/Evaluate: Goal: Have pt meet at least 75% of estimated needs Monitor: PO intake, Labs, GI function F/U in 2-3 days as high risk 05/11-
--- NOTE | 2019-05-09 13:00 | NUR ---
PT IS LAYING DOWN IN BED WITH HOB UP RESTING. PT IS SITTING UP IN BED. PT LOOKS TO BE IN NO ACUTE DISTRESS AT THIS TIME AND STATES PAIN IS TOLERABLE AT THIS TIME. DRAINED 200ML OF FOUL SMELLING DARK BROWN FLUID FROM OSTOMY BAG. FAMILY MEMBERS AT BEDSIDE. WILL CONTINUE TO MONITOR.
--- NOTE | 2019-05-09 14:55 | NUR ---
PT AMBULATING AROUND UNIT WITH FAMILY MEMBER. PT LOOKS TO BE IN NO ACUTE DISTRESS AT THIS TIME. STEADY GAIT, WILL CONTINUE TO MONITOR.
--- NOTE | 2019-05-09 15:10 | NUR ---
PT BACK IN BED, PT LOOKS TO BE IN NO ACUTE DISTRESS AND DENIES ANY PAIN. FAMILY MEMBER AT BEDSIDE. WILL CONTINUE TO MONITOR.
--- NOTE | 2019-05-09 16:20 | NUR ---
EMPTIED OSTOMY BAG FOR ABD WOUND AND EMPTIED 100ML OF DARK BROWN FOUL SMELLING DISCHARGE. PT LOOKS TO BE IN NO ACUTE DISTRESS. FAMILY MEMBER AT BEDSIDE. WILL CONTINUE TO MONITOR.
[2019-05-09 17:59] VITALS: BP 135/69
--- NOTE | 2019-05-09 18:18 | NUR ---
PT AMBULATING AROUND UNIT. PT LOOKS TO BE IN NO ACUTE DISTRESS AT THIS TIME AND STATES PAIN IS TOLERABLE AT THIS TIME. WILL CONTINUE TO MONITOR.
--- NOTE | 2019-05-09 19:20 | NUR ---
RECIEVED PT IN NO ACUTE DISTRESS. A/O. ESTONIAN SPEAKING. MED SURG. BREATHING E/U ON RA. PULSES PALPABLE. EDEMA TO BLE. BOWEL SOUNDS ACTIVE. R SIDE OF ABD IS FIRM, L SIDE IS SOFT. RLQ WITH OPEN WOUND WITH COLOSTOMY BAG DRAINING DARK BROWN/SANGUINEOUS FLUID. SURROUNDING SKIN IS REDDENED. DENIES PAIN. PICC TO JUDY, PORTS PATENT, DRESSING CDI. BED IN LOWEST POSITION, 2 SIDE RAILS UP, CALL LIGHT IN REACH. INSTRUCTED TO CALL FOR ASSISTANCE.
[2019-05-09 19:42] VITALS: BP 139/70
--- NOTE | 2019-05-10 01:51 | NUR ---
PT C/O ABD PAIN 01/08, MEDICATED WITH NORCO PER EMAR. NO ACUTE DISTRESS NOTED. WILL CONTINUE TO MONITOR.
[2019-05-10 04:56] VITALS: BP 133/67
[2019-05-10 05:10] VITALS: BP 96/54
[2019-05-10 06:25] LABS: BASOPHIL % 0.7 % (0-2)
[2019-05-10 06:32] LABS: CALCIUM 8.1 mg/dL (8.5-10.1); CARBON DIOXIDE 25.9 mmol/L (21-32); CHLORIDE SERUM 106 mmol/L (98-107); CREATININE SERUM 0.5 mg/dL (0.6-1.0); GFR1 > 60 mL/min; GLUCOSE SERUM 127 mg/dL (74-106); SODIUM SERUM 140 mmol/L (136-145)
--- NOTE | 2019-05-10 06:53 | NUR ---
225 TOTAL DARK BROWN/SANGUINEOUS DRAINAGE OUTPUT FROM RLQ WOUND. MEDICATED WITH NORCO X 3 OVERNIGHT FOR ABD PAIN. NO ACUTE DISTRESS NOTED. NO ACUTE CHANGES. WILL ENDORSE TO ONCOMING RN.
--- NOTE | 2019-05-10 07:15 | NUR ---
RECEIVED PT FROM NIGHT NURSE. PT IS LAYING DOWN IN BED WITH HOB UP RESTING WITH EYES CLOSED. PT LOOKS TO BE IN NO ACUTE DISTRESS AT THIS TIME. RESPIRATIONS EVEN AND UNLABORED ON ROOM AIR. WOUND TO RIGHT ABD IS DRAINING FOUL NUPUR BROWN COLORED FLUID. IV SITE PATENT WITH NO SIGNS OF ERYTHEMA OR SWELLING WITH IV FLUIDS INFUSING. CALL LIGHT WITHIN REACH. WILL CONTINUE TO MONITOR.
[2019-05-10 07:18] LABS: RED CELL DISTRIBUTION WIDTH 14.7 % (11.5-14.5)
[2019-05-10 07:23] LABS: PLATELET COUNT 863 x10^3mcL (130-400)
--- NOTE | 2019-05-10 08:45 | NUR ---
DRAINED OSTOMY BAG OF WOUND DRAINAGE. EMPTIED 125ML OF NUPUR BROWN FOUL SMELLING DRAINAGE. PT LOOKS TO BE IN NO ACUTE DSITRESS AT THIS TIME. WILL CONTINUE TO MONITOR
[2019-05-10 08:56] VITALS: BP 144/79
--- NOTE | 2019-05-10 11:00 | NUR ---
PT AMBULATING AROUND UNIT. PT LOOKS TO BE IN NO ACUTE DISTRESS AND GAIT LOOKS STABLE. WILL CONTINUE TO MONITOR.
--- NOTE | 2019-05-10 11:53 | NUR ---
Follow-up Nutrition Assessment: 252/B JM ROSENBERG FU HR Dx: Abdominal wall cellulitis PMHx: none Labs: (05/10) BG 127H, BUN 5.0L, CREAT 0.5L, MG 2.5H, HGB 11.1L Meds: Colace, D 10%, D 50%, Humulin, norco, Zofran, zosyn Diet: TPN D 25%, AA 5% @ 60 ml/hr, 1440 ml/day PO Intake: NPO Weights: (05/06) 97.9 kg, (05/09) 108.2 kg, (05/10) 108 kg I/Os: (05/10) 1880/525 (1355) Skin: RLQ abdomen with open wound with dark brown output with colostomy bag Bebeto: 20 Edema: +2 BLE GI: colostomy Last BM: 05/09 Note (05/09): Patient TPN dextrose and AA concentration has been changed per previous recommendations. TPN was running (D 25%, AA 5%) @ 60 ml/hr. Discussed with DESKTOP SUPPORT TECHNICIAN Flakito. Estimated Nutritional Needs Based on adjusted body weight (68.8 kg) Energy:6805-2600 kcal/day (25-30 kcal/kg for maintenance) Protein: 69-82 g/day (1.0-1.2 g/kg for maintenance) Fluid:2864-4402 mL/day (1 mL/kcal) or per MD Nutrition Diagnosis: 1. Inadequate TPN infusion related to current nutrition support order as evidenced by current running rate meeting <50% estimated needs. (improved- concentration increased to D 25%) Intervention: 1. Recommend continuing TPN D 25%, AA 5% @ 60 ml/hr. This will provide 360g dextrose, 1512 kcal and 72 g protein. GIR = 2.3 mg/kg/min. Monitor/Evaluate: Goal: Have pt meet at least 75% of estimated needs Monitor: PO intake, Labs, GI function F/U in 2-3 days as high risk 05/12-
--- NOTE | 2019-05-10 11:53 | NUR ---
1. Recommend continuing TPN D 25%, AA 5% @ 60 ml/hr. This will provide 360g dextrose, 1512 kcal and 72 g protein. GIR = 2.3 mg/kg/min.
--- NOTE | 2019-05-10 13:00 | NUR ---
EMPTIED BY OSTOMY BAG DRAINING ABD WOUND. EMPTIED 75 ML OF NUPUR BROWN FOUL SMELLING FLUID. WILL CONTINUE TO MONITOR
[2019-05-10 16:23] VITALS: BP 153/76
--- NOTE | 2019-05-10 17:55 | NUR ---
EMPTIED OSTOMY BAG DRAINING ABD WOUND. EMPTIED 50ML OF NUPUR BROWN FOUL SMELLING FLUID. PT LOOKS TO BE IN NO ACUTE DISTRESS AT THIS TIME AND IS RESTING WITH HOB UP IN BED. WILL CONTINUE TO MONITOR
--- NOTE | 2019-05-10 18:28 | NUR ---
PT IS LAYING DOWN IN BED WITH HOB UP RESTING. PT LOOKS TO BE IN NO ACUTE DISTRESS AT THIS TIME AND STATES PAIN IS TOLERABLE. ABD WOUND CONTINUES TO DRAIN NUPUR BROWN FLUID. RESPIRATIONS EVEN AND UNLABORED ON ROOM AIR. TPN INFUSING TO RIGHT UPPER ARM PICC LINE. BED IN LOWEST POSITION, CALL LIGHT WITHIN REACH. WILL ENDORSE TO ONCOMING SHIFT
--- NOTE | 2019-05-10 19:20 | NUR ---
RECIEVED PT IN NO ACUTE DISTRESS. A/O. PALESTINIAN SPEAKING. MED SURG. BREATHING E/U ON RA. PULSES PALPABLE. EDEMA TO BLE. BOWEL SOUNDS ACTIVE. R SIDE OF ABD IS FIRM, L SIDE IS SOFT. RLQ WITH OPEN WOUND WITH COLOSTOMY BAG DRAINING DARK BROWN/SANGUINEOUS FLUID. SURROUNDING SKIN IS REDDENED. DENIES PAIN. PICC TO JUDY, PORTS PATENT, DRESSING CDI. INFUSING TPN @ 60 ML/HR. BED IN LOWEST POSITION, 2 SIDE RAILS UP, CALL LIGHT IN REACH. INSTRUCTED TO CALL FOR ASSISTANCE.
[2019-05-10 21:18] VITALS: BP 149/73
--- NOTE | 2019-05-11 02:05 | NUR ---
RESTING WITH EYES CLOSED. BREATHING E/U. NO ACUTE DISTRESS NOTED. WILL CONTINUE TO MONITOR.
[2019-05-11 06:08] LABS: CALCIUM 8.3 mg/dL (8.5-10.1); CARBON DIOXIDE 26.1 mmol/L (21-32); CHLORIDE SERUM 105 mmol/L (98-107); CREATININE SERUM 0.6 mg/dL (0.6-1.0); GFR1 > 60 mL/min; GLUCOSE SERUM 174 mg/dL (74-106); POTASSIUM SERUM 4.4 mmol/L (3.5-5.1); SODIUM SERUM 139 mmol/L (136-145)
[2019-05-11 06:10] LABS: BASOPHIL % 0.3 % (0-2)
[2019-05-11 06:30] VITALS: BP 150/84
[2019-05-11 06:57] LABS: RED CELL DISTRIBUTION WIDTH 14.6 % (11.5-14.5)
[2019-05-11 07:00] LABS: PLATELET COUNT 878 x10^3mcL (130-400)
[2019-05-11 08:40] VITALS: BP 142/71
--- NOTE | 2019-05-11 10:59 | NUR ---
A&OX4, FOLLWOS COMMANDS, COOPERATES WELL. MED-SURG PATIENT, DENIES CHEST PAIN. PERIPHERAL PULSES PALPABLE, BLE EDEMA, GOOD CAP REFILL. LUNG SOUNDS ARE CTA, ON RA, 96%. NORMOACTIVE BSX4, OSTOMY BAG DRAINING BROWN AND RED DRAINAGE. PT ABLE TO AMBULATE INDEPENDENTLY. JUDY PICC SITE CDI.
[2019-05-11 16:47] VITALS: BP 146/73
[2019-05-11] MEDS ORDERED: TPN PER PHARMACY MC (17:40)
[2019-05-11] MEDS ORDERED: NOVAPLUS ZOSYN50 ML IV (17:57)
[2019-05-11 17:59] VITALS: BP 146/73
== END 2019-05-11 18:45 | DRG 872 ==
LOC: ED 23:33 → MU 04-28 04:29
PROVIDERS: Emergency Medicine; Family Medicine; Internal Medicine; ADMIT General Practice
DX: A41.9 Sepsis, unspecified organism (principal); L03.311 Cellulitis of abdominal wall; N39.0 Urinary tract infection, site not specified; E44.0 Moderate protein-calorie malnutrition; Z68.41 Body mass index [BMI] 40.0-44.9, adult; B96.1 Klebsiella pneumoniae [K. pneumoniae] as the cause of diseases classified elsewhere; E83.42 Hypomagnesemia; E11.65 Type 2 diabetes mellitus with hyperglycemia; K43.9 Ventral hernia without obstruction or gangrene; E66.01 Morbid (severe) obesity due to excess calories; Z79.84 Long term (current) use of oral hypoglycemic drugs
CPT/HCPCS: 82962; 83880; C1751; G0378; J0696; J1644; J1885; J2270; J2540; J2543; J3370; J3480; J3490; J7030; J7050; J7060; J7131; Q0092

== ENCOUNTER 2019-05-29 11:27 | Inpatient (IN) | payer OTHER, MEDICAID ==
[~2019-05-29] VITALS: Ht 165.1 cm; Wt 98.8 kg
[~2019-05-29 11:27] MED LIST: ADVIL200 M1 PO; NOVAPLUS ZOSYN50 ML IV; TPN PER PHARMACY MC
--- NOTE | 2019-05-29 11:29 | NUR ---
PATIENT ARRIVES WITH ABD PAIN FROM [facility]
--- NOTE | 2019-05-29 11:42 | NUR ---
PER DR LOVE APODACA TO MEDICATE PT PER ANTIPYRETIC PROTOCOL.
[2019-05-29 12:33] LABS: BASOPHIL % 0.4 % (0-2); PLATELET COUNT 233 x10^3mcL (130-400)
[2019-05-29 12:35] LABS: RED CELL DISTRIBUTION WIDTH 14.8 % (11.5-14.5)
[2019-05-29 12:42] LABS: CARBON DIOXIDE 24.2 mmol/L (21-32); CHLORIDE SERUM 103 mmol/L (98-107); CREATININE SERUM 0.8 mg/dL (0.6-1.0); GFR1 > 60 mL/min; GLUCOSE SERUM 145 mg/dL (74-106); POTASSIUM SERUM 3.6 mmol/L (3.5-5.1); SODIUM SERUM 136 mmol/L (136-145)
[2019-05-29 12:55] LABS: ALBUMIN 2.2 g/dL (3.4-5.0); ALKALINE PHOSPHATASE 154 U/L (46-116); ALT/SGPT 33 U/L (14-59); AST/SGOT 35 U/L (15-37); BILIRUBIN TOTAL 1.01 mg/dL (0.20-1.00)
[2019-05-29 13:45] LABS: microscopic required? YES; urine erythrocyte 2+ (NEGATIVE)
--- NOTE | 2019-05-29 14:19 | NUR ---
STARTED ON IV ATB
[2019-05-29 16:30] LABS: AMPHETAMINE QUAL UR NONE DETECTED (See below)
[2019-05-29 17:42] VITALS: BP 100/58
--- NOTE | 2019-05-29 19:21 | NUR ---
SWABS FOR WOUND CULTURE AND MRSA (NARES) COLLECTED FOR LAB.
[2019-05-29 20:41] VITALS: BP 103/53
[2019-05-29 22:52] VITALS: Ht 165.1 cm; Wt 98.8 kg
[2019-05-30] VITALS (14 sets, daily range): BP systolic 75–120; BP diastolic 40–64
[2019-05-30 06:17] LABS: PLATELET COUNT 214 x10^3mcL (130-400)
[2019-05-30 06:20] LABS: CALCIUM 7.8 mg/dL (8.5-10.1); CARBON DIOXIDE 23.7 mmol/L (21-32); CREATININE SERUM 1.5 mg/dL (0.6-1.0); MAGNESIUM 1.5 mg/dL (1.8-2.4); PHOSPHOROUS 4.5 mg/dL (2.5-4.9); POTASSIUM SERUM 3.7 mmol/L (3.5-5.1)
[2019-05-30 06:30] LABS: BASOPHIL % 0 % (0-2); RED CELL DISTRIBUTION WIDTH 15.1 % (11.5-14.5)
--- NOTE | 2019-05-30 06:53 | NUR ---
PATIENT REMAINS NPO. RIGHT UPPER ARM DOUBLE LUMEN PICC WITH IV FLUIDS INFUSING ORDERED. RIGHT LOWER QUADRANT WOUND TO OSTOMY DRAINAGE BAG WITH SEROSANQUENOUS OUTPUT NOTED. PATIENT C/O OF HEADACHE NARCO GIVEN WITH GOOD RESULTS. AMBULATE TO BATHROOM WITH ASSISTANCE. FALL PRECAUTIONS IN PROGRESS. CALL LIGHT REMAINS AT BEDSIDE. FREQUANT ROUNDS MADE, WILL CONTINUE TO MONITOR
--- NOTE | 2019-05-30 07:26 | NUR ---
0530- PATIENT BP 77/44; DENIES ANY C/O. RESIDENT NOTIFIED IV BOLUS 500 OF NORMAL SALINE GIVEN ORDERED. BP REMAINS LOW; ADDITIONAL 1 LITER OF NS GIVEN. 0730- BP 87/44 AT PRESENT. PLAN OF CARE REVIEWED WITH ONCOMING NURSE. PATIENT CONTINUES TO BE MONITORED. NO ACUTE DISTRESS NOTED AT PRESENT.
--- NOTE | 2019-05-30 08:10 | NUR ---
INITIATING 500 ML NS BOLUS ATY THIS TIME. BP 93/41 (MAP 58).
--- NOTE | 2019-05-30 09:56 | NUR ---
0735 RECEIVED CARE OF PATIENT. PATIENT AWAKE AND ALERT. ORIENTED X 3. RESPIRATIONS UNLABORED. PATIENT CONTACTED TO MONITOR #8. SINUS RHYTHM. NO COMPLAINTS OF PAIN AND ANY OTHER DISCOMFORT. PATIENT SPEAKS VERY LITTLE EMIRATI. IV NORMAL SALINE INFUSING VIA RIGHT ARM DOUBLE PICC LINE WITH BOLUS FINISHING AT THIS TIME. IV NS CONTINUES TO INFUSE FOR STABILITY OF BP. BP 87/44 AND HEART RATE 94. CELLULITIS NOTED TO ABDOMEN MID TO RIGHT SIDE WITH REDNESS AND HARDNESS NOTED. WOUND TO RIGHT SIDE OF ABDOME WITH OSTOMY BAG IN PLACE TO COLLECT DRAINAGE. DRAINAGE IS NOTED, TEA COLOR WITH A PUS NOTED IN BAG. BILATERAL LOWER EXTREMITIES EDEMA NOTED 1+.
--- NOTE | 2019-05-30 10:04 | NUR ---
[address] HURLEY FOR BP 76/38 AND HR 98 FOR ORDER TO TRANSFER TO ICU. REPEAT BP 77/41 HR 102 AND NS CONTINUE TO INFUSE.
--- NOTE | 2019-05-30 10:05 | NUR ---
0800 REPORT GIVEN TO PAVEL CHARLES IN ICU FOR PATIENT TRANSFER.
--- NOTE | 2019-05-30 10:06 | NUR ---
0805 PATIENT TRANSFERED TO ICU BED 6 WITH ALL PERSONAL BELONGINGS. PATIENT RECEIVED BY PAVEL CHARLES.
--- NOTE | 2019-05-30 13:30 | NUR ---
DR TOSCANO AT BEDSIDE TO ASSESS PATIENT. UPDATES PROVIDED BY NURSING.
--- NOTE | 2019-05-30 14:30 | NUR ---
SPOKE WITH DR TOSCANO VIA TELEPHONE. DR TOSCANO INFORMED ME HE SPOKE WITH DR ROSIBEL JACOBSON FROM [facility] AND HE IS WILLING TO ACCEPT THIS PATIENT. WILL NOTIFY CASE MANAGEMENT WITH INFORMATION.
--- NOTE | 2019-05-30 15:03 | NUR ---
SPOKE WITH JARRELL BAZAN FROM CASE MANAGMENT AND INFORMED HER THAT DR ROSIBEL JACOBSON IS WILLING TO ACCEPT PATIENT AT [facility] ( PER DR TOSCANO). JARRELL BAZAN TO FOLLOW UP WITH PATIENT'S INSURANCE.
--- NOTE | 2019-05-30 18:52 | NUR ---
SPOKE WITH TRANSFER CENTER AT [facility]. PATIENT IN NEED OF COLIRECTAL SURGEON AND [place] HAS REFUSED. THEY ARE RECOMMENDING CONTACT MEGAN BARRY. DR MCKEON MADE AWARE.
[2019-05-31] VITALS (21 sets, daily range): BP systolic 91–138; BP diastolic 44–94
[2019-05-31 04:47] LABS: BASOPHIL % 0.1 % (0-2); PLATELET COUNT 198 x10^3mcL (130-400)
[2019-05-31 04:58] LABS: CALCIUM 7.5 mg/dL (8.5-10.1); CARBON DIOXIDE 24.7 mmol/L (21-32); CHLORIDE SERUM 108 mmol/L (98-107); CREATININE SERUM 0.8 mg/dL (0.6-1.0); GFR1 > 60 mL/min; GLUCOSE SERUM 146 mg/dL (74-106); MAGNESIUM 1.8 mg/dL (1.8-2.4); PHOSPHOROUS 2.4 mg/dL (2.5-4.9); POTASSIUM SERUM 3.8 mmol/L (3.5-5.1); SODIUM SERUM 138 mmol/L (136-145)
[2019-05-31 05:00] LABS: RED CELL DISTRIBUTION WIDTH 15.1 % (11.5-14.5)
--- NOTE | 2019-05-31 07:15 | NUR ---
DR MCKEON AT BEDSIDE TO ASSESS BEDSIDE. RECENT LABS REPORTED BY NURSING. DR MCKEON MADE AWARE THAT [place] RECOMMENDS TERITARY CARE.
--- NOTE | 2019-05-31 08:07 | NUR ---
DATA INTEGRITY ANALYST AT BEDSIDE FOR VANCO TROUGH.
--- NOTE | 2019-05-31 10:12 | NUR ---
DR. MACIEL AND RESIDENTS AT BEDSIDE FOR MORNING ROUNDS. NURSING UPDATES. PT TO BE TRANSFERRED TO TELE. WILL CARRY OUT ORDERS ONCE RECEIVED.
--- NOTE | 2019-05-31 10:46 | NUR ---
WOUND CARE EVALUATION RLQ ABDMEN WALL 2X2CM FISTULA WITH OSTOMY BAG IN PLACE , SMALL AMOUNT OF YELLOWISH DRAINAGE TO BAG OBSERVED. ABD. WALL DRY SKIN, LOWER ABDOMINAL FOLDS MOIST. RECOMMEND TO APPLY HYDRAGUARD TO ABD. WALL BID AND MILAGRO. PENDING FOR TRANSFER FOR HIGHER LEVEL OF CARE AT THIS TIME.NO OTHER OPEN WOUNDS. PRIMARY RN NOTIFIED AND TRANSLATED TO [place] TO PT.
--- NOTE | 2019-05-31 12:32 | NUR ---
DR. TOSCANO AT BEDSIDE ASSESSING PT. NURSING UPDATES. NO NEW ORDERS AT THIS TIME.
--- NOTE | 2019-05-31 13:26 | NUR ---
THOM GRUBER AT BEDSIDE ADMINISTERING BREATHING TREATMENT.
--- NOTE | 2019-05-31 13:30 | NUR ---
REASSESSED PATIENT'S TEMP. DECREASED TO 100 F. BP NOW 97/46 (MAP 62). DR MCKEON MADE AWARE. ORDER RECEIVED FOR LACTATE ACID LAB AND TO BOLUS PATIENT WITH 1L NS. WILL TUNDE OUT ORDERS.
--- NOTE | 2019-05-31 13:35 | NUR ---
INFORMED DR MCKEON PATIENT RUNNING TEMPERATURE. PATIENT ADMINISTERED TYLENOL 650 MG PO. WILL REASSESS WITHIN 1 HOUR.
--- NOTE | 2019-05-31 13:54 | NUR ---
1. Recommend continuing current TPN rate as patient is likely HLOC transfer today.
--- NOTE | 2019-05-31 13:54 | NUR ---
Initial Nutrition Assessment: ICU06/A JM ROSENBERG [place] HR Dx: Abd wall abscess PMHx: Abdominal wall cellulitis, Abdominal wall hernia PSHx: peg tube placement Labs: BG 146H, BUN 21H, ALB 2.2L, CA 7.5L, P 2.4L, A1C 6.5H Meds: Colace, D 10%, D 50%, Humulin, norco, vancomycin, zosyn Diet: TPN D 10%, AA 4.25% @ 80 ml/hr PO intake since admission: NPO Ht: 165.1 cm (65") Wt: 97.6 kg (215#) BMI: 35.8 kg/m2 Bed scale:215# IBW: 125# (57 kg) %IBW: 172 UBW: 215# Age: 64/F Food Allergies: NKFA Skin: thickened abd wall with healed wounds, open wound to RUQ with ostomy bag for drainage collection Bebeto: 17 Edema: +4 BLE GI: Last BM: none documented Per H&P, Pt is a 64 YOF with PMH of abdominal wall abscess, abdominal wall hernia was brought in by EMS from [facility] for evaluation of acute onset of constant, right upper quadrant abdominal pain near her colostomy site along with oozing. Pt was discharged from [facility] approximately a month ago with PICC line for the continuation of antibiotics and TPN. RD Note (05/31): Per progress note (05/30), pt stable to transfer to [facility]. Per studio operations engineer in charge, Pt is NPO for possible surgery and is awaiting [facility] transfer. Patient is on TPN D 10%, AA 4.25% @ 80 ml/hr. Problem with: N/V/D/C: none Problems with: Chewing: Swallowing: unable to access Current appetite: unable to access Recent wt change: unable to access %wt change: n/a Vitamin/Supplement use: unable to access Special diet at home: unable to access Physical activity: unable to access Nutrition education given: not possible at this time Food-drug interactions: none Education given: n/a Estimated Nutritional Needs Based on adjusted body weight (67 kg) Energy: 0038-5920 kcal/day (25-30 kcal/kg for maintenance) Protein: 80-94 g/day (1.2-1.4 g/kg for pre-surgery) Fluid: 8665-8646 mL/day (1 mL/kcal) Nutrition Diagnosis: 1. Inadequate parenteral nutrition infusion related to low dextrose rate as evidenced by current rate meeting <75% estimated calorie and protein needs. Intervention 1. Recommend continuing current TPN rate as patient is likely HLOC transfer today. Monitor/Evaluate Goal: PO intake at least 75% of estimated needs Monitor: PO intake, Labs, GI function F/U in 3-5 days as moderate risk 06/03-5
[2019-06-01] VITALS (12 sets, daily range): BP systolic 95–154; BP diastolic 43–69
--- NOTE | 2019-06-01 03:47 | NUR ---
pt had episode of tachycardia in the 150's, SOB with increased respiratory rate of 38, with increased systolic BP of 165/91. Pt stated she was in pain, but did not believe that was the cause of her difficulty breathing. MD notified and stat ekg, chest xray, and RT protocol ordered. Pt given pain medication for pain related to abdominal wound and symptoms resolved within the hour. Pt currently resting with eyes closed with no compliants of pain or SOB.
[2019-06-01 05:13] LABS: CALCIUM 7.4 mg/dL (8.5-10.1); CARBON DIOXIDE 24.4 mmol/L (21-32); CHLORIDE SERUM 107 mmol/L (98-107); CREATININE SERUM 0.9 mg/dL (0.6-1.0); GFR1 > 60 mL/min; GLUCOSE SERUM 197 mg/dL (74-106); MAGNESIUM 1.8 mg/dL (1.8-2.4); PHOSPHOROUS 1.6 mg/dL (2.5-4.9); POTASSIUM SERUM 3.4 mmol/L (3.5-5.1); SODIUM SERUM 138 mmol/L (136-145)
[2019-06-01 05:28] LABS: BASOPHIL % 0.1 % (0-2)
[2019-06-01 05:31] LABS: RED CELL DISTRIBUTION WIDTH 15.3 % (11.5-14.5)
[2019-06-01 06:16] LABS: rbc morphology (normal/abnorm) NORMAL (NORMAL)
[2019-06-01 06:18] LABS: PLATELET COUNT 156 x10^3mcL (130-400)
--- NOTE | 2019-06-01 07:18 | NUR ---
RECEIVED AWAKE, ALERT AND ORIENTED. IN NO ACUTE RESP. DISTRESS. VS WNL. TPN INFUSING AT 80ML/HR VIA PICC LINE TO JUDY. SITE CLEAR. PT C/O ABD. PAIN 05/10. WILL MEDICATE ORDERED.CALL LIGHT WITHIN REACH. WILL CONTINUE WITH PLAN OF CARE.
--- NOTE | 2019-06-01 09:34 | NUR ---
RESTING AT THIS TIME. NO ACUTE DISTRESS. NO CHANGES IN VS. NO C/O PAIN AT THIS TIME.
--- NOTE | 2019-06-01 10:35 | NUR ---
PATIENT ROUNDS WITH DR. MACIEL AND RESIDENTS. CHARGE NURSE AND PRIMARY NURSE AT BEDSIDE. UPDATES PROVIDED AND POC DISCUSSED. WILL CONTINUE TO MONITOR.
--- NOTE | 2019-06-01 10:57 | NUR ---
AM ROUNDS DONE BY DR. MACIEL AND MEDICAL TEAM. PLAN TO TRANSFER PT BACK TO [facility] FOR CONT. OF CARE. PT AGREED WITH PLAN.
--- NOTE | 2019-06-01 12:10 | NUR ---
PT HAS TEMP 102.2. COOLING MEASURES INITIATED. TYLENOL GIVEN. WILL NOTIFY MD. PT IN NO ACUTE RESP. DISTRESS. FAMILY AT BEDSIDE. NO C/O PAIN AT THIS TIME.
--- NOTE | 2019-06-01 12:28 | NUR ---
DR. FLOR NOTIFIED OF ELEVETED TEMP.
--- NOTE | 2019-06-01 13:28 | NUR ---
TEMP NOW 99.2, COOLING MEASURES MAINTAINED.
--- NOTE | 2019-06-01 14:46 | NUR ---
PT WILL BE TRANSFERED [place] [facility]. REPORT GIVEN TO CHARLIE
--- NOTE | 2019-06-01 15:39 | NUR ---
RCEIVED PT FROM ICU AT 1525. TELE # 31 NSR 80'S. TPN INFUSING 80 CC HOUR. BREATHING FREELY ON RA. DENIES ANY PAIN. DTR AT BEDSIDE. CALL LIGHT WITHIN REACH.
--- NOTE | 2019-06-01 15:42 | NUR ---
RADIOLOGY HERE TO CONTINUE SMALL BOWEL FOLLOW THROUGH.
--- NOTE | 2019-06-01 19:30 | NUR ---
RECEIVED PT FROM DAY SHIFT RN. PT AAOX4 DENIES HERNANDEZ/DIZZINESS. BREATHING EVEN AND UNLABORED ON NC 2L/MIN 02SAT 96% NO SOB NOTED. TELE #31 ST HR 107. PT DENIES CHEST PAIN/PRESSURE. ABD SOFT/DIST. ACTIVE BOWEL SOUNDS. RIGHT SIDE ABSCESS DRAINING DARK RED LIQUID INTO DRAINAGE POUCH. F/C IN PLACE DRAINING YELLOW URINE. FLUIDS INFUSING WELL. PICC LINE RUE. PT ABLE TO TURN AND REPOSITIOND SELF. NO SIGNS OF DISTRESS NOTED. CALL BUTTON WITHIN REACH. SAFETY PRECAUTIONS IN PLACE. FAMILY AT BEDSIDE. WILL CONTINUE TO MONITOR.
--- NOTE | 2019-06-01 19:46 | NUR ---
PATIENT SEEN LYING ON BED SUPINE , AOX4, ZOSYN GIVEN AT PRESCRIBED RATE, JONES CATHETER CARE DONE, ASSISTED PATIENT TO BRP FOR BM, WATERY STOOL NOTED. COLOSTOMY BAG OVER ABSCESS SITE, 175ML OF DARK BLOOD DRAINAGE NON FOUL SMELLING, NON PURULENT. TPN INFUSING WELL AT 80CC/HR. VANCOCIN GIVEN AT PRESCRIBED RATE. NO HYPERSENSITIVITY REACTIONS NOTED DURING INFUSION. ACCUCHECKS DONE WITH HIGH BLOOD GLUCOSE LEVEL . INSULIN GIVEN PER PROTOCOL. CALL LIGHT WITHIN REACH. BED AT LOWEST POSITION.
--- NOTE | 2019-06-01 19:57 | NUR ---
PT BP IS 92/46 WITH HR [address] HURLEY MADE AWARE, AWAITING NEW ORDER.
--- NOTE | 2019-06-01 21:16 | NUR ---
PT BP AFTER 1L BOLUS IS 97/[address] HURLEY MADE AWARE AWAITING NEW ORDER. WILL CONTINUE TO MONITOR.
--- NOTE | 2019-06-01 23:31 | NUR ---
PT REPORTED HAVING HERNANDEZ, MEDICATED PER EMAR. CALL BUTTON WITHIN REACH. SAFETY PRECAUTIONS IN PLACE. WILL CONTINUE TO MONITOR.
--- NOTE | 2019-06-02 00:51 | NUR ---
ROUNDS MADE. PT RESTING. BREATHING EVEN AND UNLABORED NO SIGNS OF DISTRESS NOTED. CALL BUTTON WITHIN REACH. SAFETY PRECAUTIONS IN PLACE. WILL CONTINUE TO MONITOR.
--- NOTE | 2019-06-02 03:06 | NUR ---
PT RESTING. BREATHING EVEN AND UNLABORED ON NC 2L/MIN NO SOB NOTED. IV INFUSING WELL. NO SIGNS OF DISTRESS NOTED. CALL BUTTON WITHIN REACH. SAFETY PRECAUTIONS IN PLACE. WILL MONITOR.
--- NOTE | 2019-06-02 03:59 | NUR ---
PT REPORTED HAVING ABD PAIN /10. MEDICATED PER EMAR. CALL BUTTON WITHIN REACH. SAFETY PRECAUTIONS IN PLACE. WILL CONTINUE TO MONITOR.
[2019-06-02 04:54] VITALS: BP 102/56
--- NOTE | 2019-06-02 05:05 | NUR ---
PT SLEPT MOST OF THE NIGHT WITH NO SIGNS OF DISTRESS. NC 2L/MIN IN PLACE WITH NO SOB NOTED. PT REPORTED HAVING ABD PAIN, MEDICATED PER EMAR WITH SOME RELIEF. IV PATENT, INFUSING WELL. MEDICATED PER EMAR. PT USED BEDPAN. PT ABLE TO TURN AND REPOSITION SELF IN BED NEEDED. CALL BUTTON WITHIN REACH. SAFETY PRECAUTIONS IN PLACE. WILL CONTINUE TO MONITOR AND ENDORSE CARE TO DAY SHIFT RN.
[2019-06-02 06:52] LABS: PLATELET COUNT 130 x10^3mcL (130-400); RED CELL DISTRIBUTION WIDTH 14.4 % (11.5-14.5)
[2019-06-02 06:53] LABS: CALCIUM 7.5 mg/dL (8.5-10.1); CARBON DIOXIDE 26.2 mmol/L (21-32); CHLORIDE SERUM 107 mmol/L (98-107); CREATININE SERUM 0.7 mg/dL (0.6-1.0); GFR1 > 60 mL/min; GLUCOSE SERUM 202 mg/dL (74-106); MAGNESIUM 1.8 mg/dL (1.8-2.4); PHOSPHOROUS 1.6 mg/dL (2.5-4.9); POTASSIUM SERUM 3.6 mmol/L (3.5-5.1); SODIUM SERUM 138 mmol/L (136-145)
[2019-06-02 07:07] LABS: BASOPHIL % 0 % (0-2)
--- NOTE | 2019-06-02 07:12 | NUR ---
PT REPORTED HAVING HERNANDEZ AND GENERALIZED PAIN. MEDICATED PER EMAR. CALL BUTTON WITHIN REACH. SAFETY PRECAUTIONS IN PLACE.
--- NOTE | 2019-06-02 07:35 | NUR ---
PT RESTING, NO SIGNS OF DISTRESS. CALL BUTTON WITHIN REACH. SAFETY PRECAUTIONS IN PLACE. ENDORSED CARE TO DAY SHIFT RN, ALL QUESTIONS ADDRESSED.
[2019-06-02 07:47] VITALS: BP 109/70
--- NOTE | 2019-06-02 09:39 | NUR ---
SPOKE WITH DR. MARTINEZ, PER DR. MARTINEZ D/C IV FLUIDS, KEEP PT ON TPN
--- NOTE | 2019-06-02 09:43 | NUR ---
PATIENT SEEN LYING DOWN WITH COMPLAINTS OF ABDOMINAL PAIN PS OF 8/10. NORCO GIVEN LAST 7AM, MILD RELIEF NOTED. NO OTHER SUBJECTIVE COMPLAINTS. NOT IN RESPIRATORY DISTRESS, PO MEDICATIONS GIVEN AND VANCOCIN INFUSING WELL AT 133CC/HR, CALL LIGHT WITHIN REACH, BED AT LOWEST POSITION.
--- NOTE | 2019-06-02 10:45 | NUR ---
PATIENT SEEN LYING AOX4, VS STABLE, COMPLAINTS OF ABD PAIN AT WOUND SITE, 03/10,PROTONIX AND TORADOL GIVEN IVP PRESCRIBED. DR MACIEL VISITED AND VERBALIZED THAT PATIENT WILL HAVE TO BE ON TPN UNTIL TRANSFER OF HOSPITAL FOR SURGERY AND SURGERY POSSIBLE ON TUESDAY OR TUESDAY DEPENDING ON SURGEON. IV PATENT AND INFUSING WELL WITH NO REDNESS OR SWELLING. PATIENT REQUESTED TO SIT UP AT SIDE OF BED. ASSISTED WITH SITTING. CALL LIGHT WITHIN REACH. BED AT LOWEST POSITION.
[2019-06-02 11:45] VITALS: BP 103/51
--- NOTE | 2019-06-02 12:18 | NUR ---
PATIENT SEEN SITTING AT BEDSIDE, PO MEDICATIONS GIVEN FOR PHOSPHORUS, MILD PAIN AT WOUND SITE 11/08 NOTED, ACCUCHECK WITH BLOOD SUGAR OF 268 , INSULIN 9 U GIVEN SQ. CALL LIGHT WITHIN REACH, BED AT LOWEST POSITION.
--- NOTE | 2019-06-02 12:20 | NUR ---
SPOKE WITH FLORY FOLLOW UP REP WITH [facility], PER FLORY [facility] HDZ ACCEPTING PHYSICIAN, PER FLORY AWAITING FOR BED, ONCE BED IS AVAILABLE WILL CALL FLOOR. MANAGER PROPERTY MADE AWARE.
--- NOTE | 2019-06-02 12:40 | NUR ---
PAGED DR. HAAS REGARDING DISCHARGE ORDER, AWAITING CALL BACK.
--- NOTE | 2019-06-02 12:58 | NUR ---
1155= Received a call from Dr. Artis, informed me that Dr. Walters accepted pt. to [facility] Called [facility], spoke to Stefanie NugentLast Chalker & She said Dr. Walters is not affiliated in the Hospital.
--- NOTE | 2019-06-02 13:00 | NUR ---
1210= Spoke with Dr. Walters & He said [place]. [place] [facility] & the Bed coordinator was informed by him & they will call here regarding this pt. 1214= Called [facility] spoke to [place] (Bed control) & She will let me know when bed is available 1219= Carolyn ZHAO assigned to tis pt. & She informed me that per [facility], [facility] will pick pack worker pt. as soon a sthe pt. is ready to go [place] [facility]
[2019-06-02 13:24] VITALS: BP 103/51
--- NOTE | 2019-06-02 13:39 | NUR ---
DR PICKETT SAYED NOTIFED THAT THERE IS A BED AVAILABLE AT [facility]. TRANSPORTATION ARRANGED WITH [facility] FOR 1500. PRIMARY NURSE MADE AWARE
--- NOTE | 2019-06-02 13:41 | NUR ---
SPOKE WITH COLOR PASTE MIXING SUPERVISOR FLORY AT [facility]. MADE AWARE OF TRANSPORT WITH [facility] AT 1500.
--- NOTE | 2019-06-02 13:58 | NUR ---
REPORT GIVEN TO JEANNETTE ZHAO AT [facility]. ALL QUESTIONS AND CONCERNS ADDRESSED.
[2019-06-02 15:15] VITALS: BP 125/81
--- NOTE | 2019-06-02 15:15 | NUR ---
PT SITTING UP AT BEDSIDE. PT HAVING CHILLS. TEMPERATURE CHECKED ORALLY WAS 99.3. PER DR. WALDO SINGH TO GIVE PT TORADOL. BOLUS COMPLETE. VS TAKEN. [facility] AT BEDSIDE. EMPTIED JONES CATHETER WAS 300 ML. BLOOD SUGAR CHECKED WAS 177. TELE#31 [facility] [place] AT B[facility]IDE. NO PROBLEMS ENCOUNTERED PT TAKEN OFF FLOOR VIA [facility].
== END 2019-06-02 15:15 | disposition short-term general hospital (02) | DRG 871 ==
LOC: ED 11:27 → DU 16:18 → MU 16:18 → IC 16:18 → DU 17:40 → IC 05-30 08:02 → DU 06-01 15:21
PROVIDERS: Emergency Medicine; ADMIT Internal Medicine
DX: A41.9 Sepsis, unspecified organism (principal); E43 Unspecified severe protein-calorie malnutrition; J96.01 Acute respiratory failure with hypoxia; L03.311 Cellulitis of abdominal wall; L02.211 Cutaneous abscess of abdominal wall; K43.6 Other and unspecified ventral hernia with obstruction, without gangrene; K63.2 Fistula of intestine; N17.9 Acute kidney failure, unspecified; Z68.41 Body mass index [BMI] 40.0-44.9, adult; E11.9 Type 2 diabetes mellitus without complications; K80.20 Calculus of gallbladder without cholecystitis without obstruction; E66.01 Morbid (severe) obesity due to excess calories
CPT/HCPCS: 82962; C9113; G0378; J1885; J2270; J2405; J2543; J3010; J3370; J3490; J7030; J7040; J7131; Q0092; Q9967